=== PATIENT | female | born 1950 | race Two or more races ===

== ENCOUNTER 2024-09-30 13:40 | Outpatient (RCR) | payer MEDICARE, BC, SELFPAY | END 2024-10-10 23:59 | disposition home or self-care (01) | LOC: SCTC 13:40 | PROVIDERS: PCP Internal Medicine; Referring Provider Internal Medicine; Visit Provider Nurse Practitioner Family | DX: D75.9 Disease of blood and blood-forming organs, unspecified (principal); N18.9 Chronic kidney disease, unspecified; D50.9 Iron deficiency anemia, unspecified; Z94.4 Liver transplant status | CPT/HCPCS: 96372; 99212; Q5101; G0463 ==

== ENCOUNTER → 2024-10-12 | Outpatient (CLI) | payer MEDICARE, BC, SELFPAY ==
[2024-10-12 11:26] LABS: Basophils % (Auto) 0 % (0-2.5); Eosinophils # (Auto) 0.1 Thou/mm3 (0.0-0.5); Eosinophils % (Auto) 2 % (0-10); Hematocrit 32.6 % (36.0-46.0); Hemoglobin 10.2 g/dL (12.0-16.0); Immature Granulocytes % (Auto) 0 % (0-0); Immature Granulocytes Auto 0.01 Thou/mm3 (0.00-0.00); Lymphocytes # (Auto) 0.8 Thou/mm3 (1.0-4.8); Lymphocytes % (Auto) 28 % (10-50); Mean Corpuscular HGB Conc 31.3 g/dl (31.0-37.0); Mean Corpuscular Hemoglobin 28.6 pg (25.0-35.0); Mean Corpuscular Volume 91 fL (80-100); Monocytes # (Auto) 0.2 Thou/mm3 (0.0-0.8); Monocytes % (Auto) 5 % (0-12); Neutrophils # (Auto) 1.8 Thou/mm3 (1.8-7.7); Neutrophils % (Auto) 64 % (37-80); Nucleated Red Blood Cell % 0 /100 WBC (0); Platelet Count 85 Thou/mm3 (140-440); RDW Standard Deviation 47.8 fL (36.4-46.3); Red Blood Count 3.57 Miln/mm3 (4.00-5.20)
[2024-10-12 11:40] LABS: Alanine Aminotransferase 10 U/L (10-49); Albumin, Serum 4.2 gm/dL (3.4-4.8); Albumin/Globulin Ratio 1.7 (1.2-2.2); Alkaline Phosphatase 91 U/L (46-116); Anion Gap 6 (7-16); Aspartate Amino Transferase 17 U/L (0-34); BUN/Creatinine Ratio 19 Ratio (12-20); Bilirubin,Total 0.4 mg/dL (0.3-1.2); Blood Urea Nitrogen 41 mg/dL (9-23); Calcium 9.5 mg/dL (8.3-10.6); Calcium (Corrected) 9.5 mg/dL (8.5-10.1); Carbon Dioxide 26.5 mMol/L (20.0-31.0); Chloride 111 mMol/L (98-107); Creatinine (Component) 2.2 mg/dL (0.6-1.3); Globulin 2.5 gm/dL (2.3-3.5); Glucose 110 mg/dL (74-106); Osmolality,Calculated 296 (275-295); Potassium 5.1 mMol/L (3.4-5.1); Sodium 143 mMol/L (136-145); Total Protein 6.7 gm/dL (5.7-8.2); eGFR 23 See Note
[2024-10-12 11:50] LABS: White Blood Count 2.8 Thou/mm3 (3.6-11.0)
== END | disposition home or self-care (01) ==
PROVIDERS: PCP Internal Medicine; Referring Provider Nurse Practitioner Family; Visit Provider Nurse Practitioner Family
DX: D61.818 Other pancytopenia (principal)
CPT/HCPCS: 36415; 80053; 85025

== ENCOUNTER → 2024-10-22 | Outpatient (CLI) | payer MEDICARE, BC, SELFPAY ==
--- NOTE | 2024-10-22 08:06 | XR_ITS ---
Examination: Retroperitoneal ultrasound, complete Technique: Multiple high resolution grayscale images of the retroperitoneum obtained, including kidneys and bladder. Exam date and time:October 22, 2024 0810 hours INDICATIONS: Acute renal insufficiency on laboratory examination performed one week ago FINDINGS: Right kidney 8.5 x 4.4 x 5.0 cm cortex 1.1 cm Left kidney 9.2 x 3.8 x 4.2 cm in the cortex 1.4 cm Moderate bilateral renal parenchymal scar formation No hydronephrosis Contracted urinary bladder no bladder mass or bladder calculi IMPRESSION:: Small kidneys with bilateral renal cortical thinning Moderate bilateral renal parenchymal scar formation
[2024-10-22 10:20] LABS: Basophils # (Auto) 0.1 Thou/mm3 (0.0-0.2); Basophils % (Auto) 1 % (0-2.5); Eosinophils # (Auto) 0.1 Thou/mm3 (0.0-0.5); Eosinophils % (Auto) 0 % (0-10); Hemoglobin 10.5 g/dL (12.0-16.0); Immature Granulocytes % (Auto) 0 % (0-0); Immature Granulocytes Auto 0.05 Thou/mm3 (0.00-0.00); Lymphocytes # (Auto) 0.8 Thou/mm3 (1.0-4.8); Lymphocytes % (Auto) 6 % (10-50); Mean Corpuscular HGB Conc 31.8 g/dl (31.0-37.0); Mean Corpuscular Hemoglobin 28.8 pg (25.0-35.0); Mean Corpuscular Volume 90 fL (80-100); Monocytes # (Auto) 0.5 Thou/mm3 (0.0-0.8); Monocytes % (Auto) 4 % (0-12); Neutrophils # (Auto) 11.2 Thou/mm3 (1.8-7.7); Neutrophils % (Auto) 89 % (37-80); Nucleated Red Blood Cell % 0 /100 WBC (0); Platelet Count 98 Thou/mm3 (140-440); RDW Standard Deviation 47.6 fL (36.4-46.3); Red Blood Count 3.65 Miln/mm3 (4.00-5.20); White Blood Count 12.6 Thou/mm3 (3.6-11.0)
[2024-10-22 10:48] LABS: Albumin, Serum 4.6 gm/dL (3.4-4.8); Anion Gap 4 (7-16); BUN/Creatinine Ratio 17 Ratio (12-20); Blood Urea Nitrogen 45 mg/dL (9-23); Calcium 9.6 mg/dL (8.3-10.6); Calcium (Corrected) 9.6 mg/dL (8.5-10.1); Carbon Dioxide 27.2 mMol/L (20.0-31.0); Chloride 111 mMol/L (98-107); Creatinine (Component) 2.7 mg/dL (0.6-1.3); Glucose 89 mg/dL (74-106); Osmolality,Calculated 293 (275-295); Potassium 5.2 mMol/L (3.4-5.1); Sodium 142 mMol/L (136-145); eGFR 18 See Note
== END | disposition home or self-care (01) ==
LOC: CDIM 07:28 → COPL 08:40
PROVIDERS: PCP Internal Medicine; Referring Provider Internal Medicine; Visit Provider Radiology Diagnostic Radiology
DX: N27.1 Small kidney, bilateral (principal); N28.89 Other specified disorders of kidney and ureter; N17.9 Acute kidney failure, unspecified
CPT/HCPCS: 36415; 76770; 80069; 85025

== ENCOUNTER 2024-11-05 13:03 | Outpatient (RCR) | payer MEDICARE, BC, SELFPAY | END 2024-11-10 23:59 | disposition home or self-care (01) | LOC: SCTC 13:03 | PROVIDERS: PCP Internal Medicine; Referring Provider Internal Medicine; Visit Provider Internal Medicine Hematology & Oncology | DX: D75.9 Disease of blood and blood-forming organs, unspecified (principal); D50.9 Iron deficiency anemia, unspecified; N18.9 Chronic kidney disease, unspecified; Z94.4 Liver transplant status | CPT/HCPCS: 96372; Q5101 ==

== ENCOUNTER → 2024-11-16 | Outpatient (CLI) | payer MEDICARE, BC, SELFPAY ==
[2024-11-16 10:29] LABS: Basophils % (Auto) 0 % (0-2.5); Eosinophils # (Auto) 0.1 Thou/mm3 (0.0-0.5); Eosinophils % (Auto) 2 % (0-10); Hematocrit 36.1 % (36.0-46.0); Hemoglobin 11.4 g/dL (12.0-16.0); Immature Granulocytes % (Auto) 0 % (0-0); Immature Granulocytes Auto 0.01 Thou/mm3 (0.00-0.00); Lymphocytes # (Auto) 0.8 Thou/mm3 (1.0-4.8); Lymphocytes % (Auto) 23 % (10-50); Mean Corpuscular HGB Conc 31.6 g/dl (31.0-37.0); Mean Corpuscular Hemoglobin 28.4 pg (25.0-35.0); Mean Corpuscular Volume 90 fL (80-100); Monocytes # (Auto) 0.2 Thou/mm3 (0.0-0.8); Monocytes % (Auto) 5 % (0-12); Neutrophils # (Auto) 2.2 Thou/mm3 (1.8-7.7); Neutrophils % (Auto) 70 % (37-80); Nucleated Red Blood Cell % 0 /100 WBC (0); Platelet Count 89 Thou/mm3 (140-440); RDW Standard Deviation 47.3 fL (36.4-46.3); Red Blood Count 4.01 Miln/mm3 (4.00-5.20); White Blood Count 3.2 Thou/mm3 (3.6-11.0)
[2024-11-16 10:42] LABS: Alanine Aminotransferase 12 U/L (10-49); Albumin, Serum 4.5 gm/dL (3.4-4.8); Albumin/Globulin Ratio 1.7 (1.2-2.2); Alkaline Phosphatase 96 U/L (46-116); Anion Gap 7 (7-16); Aspartate Amino Transferase 17 U/L (0-34); BUN/Creatinine Ratio 18 Ratio (12-20); Bilirubin,Total 0.4 mg/dL (0.3-1.2); Blood Urea Nitrogen 40 mg/dL (9-23); Calcium 9.7 mg/dL (8.3-10.6); Calcium (Corrected) 9.7 mg/dL (8.5-10.1); Carbon Dioxide 25.2 mMol/L (20.0-31.0); Chloride 113 mMol/L (98-107); Creatinine (Component) 2.2 mg/dL (0.6-1.3); Globulin 2.7 gm/dL (2.3-3.5); Glucose 99 mg/dL (74-106); Osmolality,Calculated 298 (275-295); Potassium 5.3 mMol/L (3.4-5.1); Sodium 145 mMol/L (136-145); Total Protein 7.2 gm/dL (5.7-8.2); eGFR 23 See Note
== END | disposition home or self-care (01) ==
PROVIDERS: PCP Internal Medicine; Referring Provider Nurse Practitioner Family; Visit Provider Nurse Practitioner Family
DX: D61.818 Other pancytopenia (principal)
CPT/HCPCS: 36415; 80053; 85025

== ENCOUNTER → 2024-12-01 | Outpatient (CLI) | payer MEDICARE, BC, SELFPAY ==
[2024-12-01 10:19] LABS: Basophils % (Auto) 0 % (0-2.5); Eosinophils # (Auto) 0.1 Thou/mm3 (0.0-0.5); Eosinophils % (Auto) 3 % (0-10); Hematocrit 31.5 % (36.0-46.0); Hemoglobin 10.5 g/dL (12.0-16.0); Immature Granulocytes % (Auto) 0 % (0-0); Immature Granulocytes Auto 0.01 Thou/mm3 (0.00-0.00); Lymphocytes # (Auto) 0.8 Thou/mm3 (1.0-4.8); Lymphocytes % (Auto) 31 % (10-50); Mean Corpuscular HGB Conc 33.3 g/dl (31.0-37.0); Mean Corpuscular Hemoglobin 28.6 pg (25.0-35.0); Mean Corpuscular Volume 86 fL (80-100); Monocytes # (Auto) 0.2 Thou/mm3 (0.0-0.8); Monocytes % (Auto) 7 % (0-12); Neutrophils # (Auto) 1.5 Thou/mm3 (1.8-7.7); Neutrophils % (Auto) 59 % (37-80); Nucleated Red Blood Cell % 0 /100 WBC (0); Platelet Count 91 Thou/mm3 (140-440); RDW Standard Deviation 45.4 fL (36.4-46.3); Red Blood Count 3.67 Miln/mm3 (4.00-5.20)
[2024-12-01 10:24] LABS: White Blood Count 2.6 Thou/mm3 (3.6-11.0)
== END | disposition home or self-care (01) ==
LOC: SCTO 09:02
PROVIDERS: PCP Internal Medicine; Referring Provider Nurse Practitioner Family; Visit Provider Nurse Practitioner Family
DX: D61.818 Other pancytopenia (principal)
CPT/HCPCS: 36415; 85025

== ENCOUNTER 2024-12-09 13:33 | Outpatient (RCR) | payer MEDICARE, BC, SELFPAY | END 2024-12-11 23:59 | disposition home or self-care (01) | LOC: SCTC 13:33 | PROVIDERS: PCP Internal Medicine; Referring Provider Internal Medicine; Visit Provider Nurse Practitioner Family | DX: D75.9 Disease of blood and blood-forming organs, unspecified (principal); D50.9 Iron deficiency anemia, unspecified; N18.9 Chronic kidney disease, unspecified; Z94.4 Liver transplant status | CPT/HCPCS: 96372; 99212; Q5101; G0463 ==

== ENCOUNTER → 2024-12-22 | Outpatient (CLI) | payer MEDICARE, BC, SELFPAY ==
[2024-12-22 08:51] LABS: Collection Type, Urine Clean Catch
[2024-12-22 09:12] LABS: Basophils % (Auto) 1 % (0-2.5); Eosinophils # (Auto) 0.1 Thou/mm3 (0.0-0.5); Eosinophils % (Auto) 3 % (0-10); Hemoglobin 10.3 g/dL (12.0-16.0); Immature Granulocytes % (Auto) 1 % (0-0); Immature Granulocytes Auto 0.02 Thou/mm3 (0.00-0.00); Lymphocytes # (Auto) 0.6 Thou/mm3 (1.0-4.8); Lymphocytes % (Auto) 30 % (10-50); Mean Corpuscular HGB Conc 32.2 g/dl (31.0-37.0); Mean Corpuscular Hemoglobin 28.3 pg (25.0-35.0); Mean Corpuscular Volume 88 fL (80-100); Monocytes # (Auto) 0.2 Thou/mm3 (0.0-0.8); Monocytes % (Auto) 9 % (0-12); Neutrophils # (Auto) 1.1 Thou/mm3 (1.8-7.7); Neutrophils % (Auto) 57 % (37-80); Nucleated Red Blood Cell % 0 /100 WBC (0); Platelet Count 89 Thou/mm3 (140-440); RDW Standard Deviation 45.2 fL (36.4-46.3); Red Blood Count 3.64 Miln/mm3 (4.00-5.20)
[2024-12-22 09:24] LABS: Bilirubin,Urine Negative (Negative); Blood,Urine Negative (Negative); Clarity,Urine Clear (Clear/Hazy); Color,Urine Yellow (Lt Yel-Yel); Glucose, Urine Negative (Negative); Ketones,Urine Negative (Negative); Leukocyte Esterase,Urine Negative (Negative); Nitrite,Urine Negative (Negative); Protein,Urine Negative (Neg - Trace); RBC,Urine < 1 /hpf (0-3); Specific Gravity,Urine 1.015 (1.001-1.035); Squamous Epithelial Cell,Urine < 1 /hpf (0-5); Urobilinogen,Urine Negative mg/dL (0.0-1.0); WBC,Urine 1 /hpf (0-5)
[2024-12-22 09:27] LABS: Glucose Estimated Average 91 mg/dL (80-131); Hemoglobin A1C 4.8 % Hgb (4.8-6.0)
[2024-12-22 09:28] LABS: Creatinine MALB Rnd Ur 90 mg/dL (30-125); Microalbumin Creat Ratio 3 mg/gCrea (<30); Microalbumin, Random Urine 3 mg/L (0-300)
[2024-12-22 09:32] LABS: Alanine Aminotransferase 12 U/L (10-49); Albumin, Serum 4.3 gm/dL (3.4-4.8); Alkaline Phosphatase 96 U/L (46-116); Anion Gap 4 (7-16); Aspartate Amino Transferase 14 U/L (0-34); BUN/Creatinine Ratio 15 Ratio (12-20); Bilirubin,Direct 0.1 mg/dL (0.0-0.3); Bilirubin,Total 0.3 mg/dL (0.3-1.2); Blood Urea Nitrogen 32 mg/dL (9-23); Calcium 9.3 mg/dL (8.3-10.6); Calcium (Corrected) 9.3 mg/dL (8.5-10.1); Carbon Dioxide 26.2 mMol/L (20.0-31.0); Cardiac Risk Estimate 3.4 RATIO (3.7-5.6); Chloride 112 mMol/L (98-107); Cholesterol 98 mg/dL (132-200); Creatinine (Component) 2.1 mg/dL (0.6-1.3); Globulin 2.2 gm/dL (2.3-3.5); Glucose 98 mg/dL (74-106); HDL Cholesterol 29 mg/dL (40-60); LDL Cholesterol,Calculated 10 mg/dL (0-130); Osmolality,Calculated 290 (275-295); Phosphorous 4.1 mg/dL (2.4-5.1); Potassium 4.9 mMol/L (3.4-5.1); Sodium 142 mMol/L (136-145); Thyroid Stimulating Hormone 1.77 uIU/mL (0.55-4.78); Total Protein 6.5 gm/dL (5.7-8.2); Triglycerides 294 mg/dL (30-150); eGFR 24 See Note
== END | disposition home or self-care (01) ==
LOC: COPL 07:56
PROVIDERS: PCP Internal Medicine; Referring Provider Internal Medicine; Visit Provider Internal Medicine
DX: D61.818 Other pancytopenia (principal); I12.9 Hypertensive chronic kidney disease with stage 1 through stage 4 chronic kidney disease, or unspecified chronic kidney disease; E11.22 Type 2 diabetes mellitus with diabetic chronic kidney disease; N18.4 Chronic kidney disease, stage 4 (severe); N17.9 Acute kidney failure, unspecified; E78.5 Hyperlipidemia, unspecified
CPT/HCPCS: 36415; 80053; 80061; 81001; 82043; 82248; 82570; 83036; 84100; 84443; 85025

== ENCOUNTER 2025-01-06 13:42 | Outpatient (RCR) | payer MEDICARE, BC, SELFPAY | END 2025-01-08 23:59 | disposition home or self-care (01) | LOC: SCTC 13:42 | PROVIDERS: PCP Internal Medicine; Referring Provider Internal Medicine; Visit Provider Internal Medicine Hematology & Oncology | DX: D75.9 Disease of blood and blood-forming organs, unspecified (principal); N18.9 Chronic kidney disease, unspecified; D50.9 Iron deficiency anemia, unspecified; Z94.4 Liver transplant status | CPT/HCPCS: 96372; Q5101 ==

== ENCOUNTER → 2025-01-11 | Outpatient (CLI) | payer MEDICARE, BC, SELFPAY ==
[2025-01-11 09:28] LABS: Basophils % (Auto) 0 % (0-2.5); Eosinophils # (Auto) 0.1 Thou/mm3 (0.0-0.5); Eosinophils % (Auto) 2 % (0-10); Hematocrit 33.7 % (36.0-46.0); Hemoglobin 10.7 g/dL (12.0-16.0); Immature Granulocytes % (Auto) 1 % (0-0); Immature Granulocytes Auto 0.03 Thou/mm3 (0.00-0.00); Lymphocytes # (Auto) 0.7 Thou/mm3 (1.0-4.8); Lymphocytes % (Auto) 20 % (10-50); Mean Corpuscular HGB Conc 31.8 g/dl (31.0-37.0); Mean Corpuscular Volume 88 fL (80-100); Monocytes # (Auto) 0.2 Thou/mm3 (0.0-0.8); Monocytes % (Auto) 5 % (0-12); Neutrophils # (Auto) 2.5 Thou/mm3 (1.8-7.7); Neutrophils % (Auto) 72 % (37-80); Nucleated Red Blood Cell % 0 /100 WBC (0); Platelet Count 106 Thou/mm3 (140-440); RDW Standard Deviation 45.3 fL (36.4-46.3); Red Blood Count 3.82 Miln/mm3 (4.00-5.20); White Blood Count 3.5 Thou/mm3 (3.6-11.0)
[2025-01-11 09:54] LABS: Alanine Aminotransferase 9 U/L (10-49); Albumin, Serum 4.5 gm/dL (3.4-4.8); Albumin/Globulin Ratio 1.8 (1.2-2.2); Alkaline Phosphatase 100 U/L (46-116); Anion Gap 10 (7-16); Aspartate Amino Transferase 15 U/L (0-34); BUN/Creatinine Ratio 22 Ratio (12-20); Bilirubin,Total 0.3 mg/dL (0.3-1.2); Blood Urea Nitrogen 41 mg/dL (9-23); Calcium 9.6 mg/dL (8.3-10.6); Calcium (Corrected) 9.6 mg/dL (8.5-10.1); Carbon Dioxide 23.2 mMol/L (20.0-31.0); Chloride 113 mMol/L (98-107); Creatinine (Component) 1.9 mg/dL (0.6-1.3); Globulin 2.5 gm/dL (2.3-3.5); Glucose 113 mg/dL (74-106); Osmolality,Calculated 301 (275-295); Potassium 4.8 mMol/L (3.4-5.1); Sodium 146 mMol/L (136-145); eGFR 27 See Note
[2025-01-11 11:43] LABS: Ferritin 142 ng/mL (7.3-270.7); Iron 58 mcg/dL (50-170); Percent Iron Saturation 22 % (20-55); Total Iron Binding Capacity 259 mcg/dL (250-425); Unsaturated Iron Binding 201 (225-295)
== END | disposition home or self-care (01) ==
LOC: SCTO 07:58
PROVIDERS: PCP Internal Medicine; Referring Provider Nurse Practitioner Family; Visit Provider Nurse Practitioner Family
DX: D61.818 Other pancytopenia (principal)
CPT/HCPCS: 36415; 80053; 82728; 83540; 83550; 85025

== ENCOUNTER → 2025-01-26 | Outpatient (CLI) | payer MEDICARE, BC, SELFPAY ==
[2025-01-26 08:41] LABS: Basophils % (Auto) 1 % (0-2.5); Eosinophils # (Auto) 0.1 Thou/mm3 (0.0-0.5); Eosinophils % (Auto) 5 % (0-10); Hematocrit 30.1 % (36.0-46.0); Hemoglobin 9.6 g/dL (12.0-16.0); Immature Granulocytes % (Auto) 1 % (0-0); Immature Granulocytes Auto 0.01 Thou/mm3 (0.00-0.00); Lymphocytes # (Auto) 0.7 Thou/mm3 (1.0-4.8); Lymphocytes % (Auto) 31 % (10-50); Mean Corpuscular HGB Conc 31.9 g/dl (31.0-37.0); Mean Corpuscular Hemoglobin 27.9 pg (25.0-35.0); Mean Corpuscular Volume 88 fL (80-100); Monocytes # (Auto) 0.2 Thou/mm3 (0.0-0.8); Monocytes % (Auto) 10 % (0-12); Neutrophils # (Auto) 1.1 Thou/mm3 (1.8-7.7); Neutrophils % (Auto) 53 % (37-80); Nucleated Red Blood Cell % 0 /100 WBC (0); RDW Standard Deviation 46.9 fL (36.4-46.3); Red Blood Count 3.44 Miln/mm3 (4.00-5.20)
[2025-01-26 09:00] LABS: Platelet Count 79 Thou/mm3 (140-440); White Blood Count 2.1 Thou/mm3 (3.6-11.0)
[2025-01-26 10:10] LABS: Slide Review Platelets confirmed
== END | disposition home or self-care (01) ==
LOC: SCTO 07:52
PROVIDERS: PCP Internal Medicine; Referring Provider Nurse Practitioner Family; Visit Provider Nurse Practitioner Family
DX: D61.818 Other pancytopenia (principal)
CPT/HCPCS: 36415; 85025

== ENCOUNTER 2025-02-03 13:35 | Outpatient (RCR) | payer MEDICARE, BC, SELFPAY | END 2025-02-08 23:59 | disposition home or self-care (01) | LOC: SCTC 13:35 | PROVIDERS: PCP Internal Medicine; Referring Provider Internal Medicine; Visit Provider Internal Medicine Hematology & Oncology | DX: D61.818 Other pancytopenia (principal); Z94.4 Liver transplant status; N18.9 Chronic kidney disease, unspecified; J02.9 Acute pharyngitis, unspecified; R05.9 Cough, unspecified; Z86.2 Personal history of diseases of the blood and blood-forming organs and certain disorders involving the immune mechanism | CPT/HCPCS: 96372; 99212; Q5101; G0463 ==

== ENCOUNTER → 2025-02-09 | Outpatient (CLI) | payer MEDICARE, BC, SELFPAY ==
[2025-02-09 08:32] LABS: Basophils % (Auto) 0 % (0-2.5); Eosinophils # (Auto) 0.1 Thou/mm3 (0.0-0.5); Eosinophils % (Auto) 6 % (0-10); Hemoglobin 9.7 g/dL (12.0-16.0); Immature Granulocytes % (Auto) 1 % (0-0); Immature Granulocytes Auto 0.03 Thou/mm3 (0.00-0.00); Lymphocytes # (Auto) 0.7 Thou/mm3 (1.0-4.8); Lymphocytes % (Auto) 29 % (10-50); Mean Corpuscular HGB Conc 32.3 g/dl (31.0-37.0); Mean Corpuscular Hemoglobin 28.2 pg (25.0-35.0); Mean Corpuscular Volume 87 fL (80-100); Monocytes # (Auto) 0.2 Thou/mm3 (0.0-0.8); Monocytes % (Auto) 7 % (0-12); Neutrophils # (Auto) 1.3 Thou/mm3 (1.8-7.7); Neutrophils % (Auto) 57 % (37-80); Nucleated Red Blood Cell % 0 /100 WBC (0); Platelet Count 83 Thou/mm3 (140-440); RDW Standard Deviation 46.3 fL (36.4-46.3); Red Blood Count 3.44 Miln/mm3 (4.00-5.20)
[2025-02-09 08:38] LABS: White Blood Count 2.3 Thou/mm3 (3.6-11.0)
== END | disposition home or self-care (01) ==
LOC: SCTO 07:49
PROVIDERS: PCP Internal Medicine; Referring Provider Nurse Practitioner Family; Visit Provider Nurse Practitioner Family
DX: D61.818 Other pancytopenia (principal)
CPT/HCPCS: 36415; 85025

== ENCOUNTER → 2025-02-15 | Outpatient (CLI) | payer MEDICARE, BC, SELFPAY ==
[2025-02-12 09:51] VITALS: BMI 22.3
[2025-02-15 10:57] LABS: Basophils % (Auto) 1 % (0-2.5); Eosinophils # (Auto) 0.1 Thou/mm3 (0.0-0.5); Eosinophils % (Auto) 5 % (0-10); Hematocrit 31.2 % (36.0-46.0); Hemoglobin 10.2 g/dL (12.0-16.0); Immature Granulocytes % (Auto) 1 % (0-0); Immature Granulocytes Auto 0.02 Thou/mm3 (0.00-0.00); Lymphocytes # (Auto) 0.7 Thou/mm3 (1.0-4.8); Lymphocytes % (Auto) 24 % (10-50); Mean Corpuscular HGB Conc 32.7 g/dl (31.0-37.0); Mean Corpuscular Hemoglobin 28.4 pg (25.0-35.0); Mean Corpuscular Volume 87 fL (80-100); Monocytes # (Auto) 0.2 Thou/mm3 (0.0-0.8); Monocytes % (Auto) 6 % (0-12); Neutrophils # (Auto) 1.9 Thou/mm3 (1.8-7.7); Neutrophils % (Auto) 65 % (37-80); Nucleated Red Blood Cell % 0 /100 WBC (0); RDW Standard Deviation 45.2 fL (36.4-46.3); Red Blood Count 3.59 Miln/mm3 (4.00-5.20)
[2025-02-15 11:02] LABS: Prothrombin Time 11.1 Seconds (9.0-12.2)
[2025-02-15 11:15] LABS: Platelet Count 66 Thou/mm3 (140-440); White Blood Count 2.9 Thou/mm3 (3.6-11.0)
--- NOTE | 2025-02-15 11:17 | PC.NURSE ---
Radiologist notified about low platelet count (66) and low WBC count (2.9). Radiologist okay with proceeding with tomorrow's procedure.
[2025-02-15 13:08] LABS: Slide Review Platelets confirmed
--- NOTE | 2025-03-02 18:37 | PC.NURSE ---
patient unable to talk at this time, message left with family to have patient register and get labs tomorrow 03/03/25 and come in for scheduled procedure 03/04/25 at 0730
== END | disposition home or self-care (01) ==
LOC: SLAB 03-03 08:30
PROVIDERS: Radiology Diagnostic Radiology; PCP Internal Medicine; Referring Provider Nurse Practitioner Family; Visit Provider Nurse Practitioner Family
DX: D61.818 Other pancytopenia (principal)
CPT/HCPCS: 36415; 85025; 85610; 85730

== ENCOUNTER → 2025-02-16 | Outpatient (CLI) | payer MEDICARE, BC, SELFPAY ==
[2025-02-16 10:45] LABS: Basophils % (Auto) 1 % (0-2.5); Eosinophils # (Auto) 0.2 Thou/mm3 (0.0-0.5); Eosinophils % (Auto) 9 % (0-10); Hemoglobin 9.9 g/dL (12.0-16.0); Immature Granulocytes % (Auto) 1 % (0-0); Immature Granulocytes Auto 0.01 Thou/mm3 (0.00-0.00); Lymphocytes # (Auto) 0.6 Thou/mm3 (1.0-4.8); Lymphocytes % (Auto) 27 % (10-50); Mean Corpuscular HGB Conc 31.9 g/dl (31.0-37.0); Mean Corpuscular Hemoglobin 28.1 pg (25.0-35.0); Mean Corpuscular Volume 88 fL (80-100); Monocytes # (Auto) 0.2 Thou/mm3 (0.0-0.8); Monocytes % (Auto) 9 % (0-12); Neutrophils # (Auto) 1.2 Thou/mm3 (1.8-7.7); Neutrophils % (Auto) 55 % (37-80); Nucleated Red Blood Cell % 0 /100 WBC (0); RDW Standard Deviation 45.7 fL (36.4-46.3); Red Blood Count 3.52 Miln/mm3 (4.00-5.20)
[2025-02-16 10:53] LABS: White Blood Count 2.2 Thou/mm3 (3.6-11.0)
[2025-02-16 10:58] LABS: Platelet Count 73 Thou/mm3 (140-440)
[2025-02-16 12:18] LABS: Slide Review Platelets confirmed
[2025-02-16 12:19] LABS: Alanine Aminotransferase 8 U/L (10-49); Albumin, Serum 3.8 gm/dL (3.4-4.8); Albumin/Globulin Ratio 1.7 (1.2-2.2); Alkaline Phosphatase 77 U/L (46-116); Anion Gap 9 (7-16); Aspartate Amino Transferase 17 U/L (0-34); BUN/Creatinine Ratio 16 Ratio (12-20); Bilirubin,Total 0.4 mg/dL (0.3-1.2); Blood Urea Nitrogen 32 mg/dL (9-23); Calcium 8.8 mg/dL (8.3-10.6); Carbon Dioxide 26.2 mMol/L (20.0-31.0); Chloride 109 mMol/L (98-107); Globulin 2.3 gm/dL (2.3-3.5); Glucose 95 mg/dL (74-106); Osmolality,Calculated 293 (275-295); Potassium 3.6 mMol/L (3.4-5.1); Sodium 144 mMol/L (136-145); Total Protein 6.1 gm/dL (5.7-8.2); eGFR 26 See Note
== END | disposition home or self-care (01) ==
LOC: SCTO 09:10
PROVIDERS: PCP Internal Medicine; Referring Provider Nurse Practitioner Family; Visit Provider Nurse Practitioner Family
DX: D61.818 Other pancytopenia (principal)
CPT/HCPCS: 36415; 80053; 85025

== ENCOUNTER 2025-03-04 07:31 | Outpatient (CLI) | payer MEDICARE, BC, SELFPAY ==
[2025-03-04] VITALS (10 sets, daily range): BP systolic 105–125; BP diastolic 67–72; PULSE 77–84; RESP 12–22; TEMP 36.8–37.2; O2SAT 96–100; BMI 23.0
[2025-03-04 07:49] LABS: Flow Cytometry* See Sep Rpt
[2025-03-04 08:03] LABS: Basophils # (Auto) 0.1 Thou/mm3 (0.0-0.2); Basophils % (Auto) 1 % (0-2.5); Eosinophils # (Auto) 0.2 Thou/mm3 (0.0-0.5); Eosinophils % (Auto) 3 % (0-10); Hematocrit 33.4 % (36.0-46.0); Hemoglobin 10.8 g/dL (12.0-16.0); Immature Granulocytes % (Auto) 0 % (0-0); Immature Granulocytes Auto 0.02 Thou/mm3 (0.00-0.00); Lymphocytes # (Auto) 0.8 Thou/mm3 (1.0-4.8); Lymphocytes % (Auto) 10 % (10-50); Mean Corpuscular HGB Conc 32.3 g/dl (31.0-37.0); Mean Corpuscular Hemoglobin 28.2 pg (25.0-35.0); Mean Corpuscular Volume 87 fL (80-100); Monocytes # (Auto) 0.5 Thou/mm3 (0.0-0.8); Monocytes % (Auto) 6 % (0-12); Neutrophils # (Auto) 6.2 Thou/mm3 (1.8-7.7); Neutrophils % (Auto) 80 % (37-80); Nucleated Red Blood Cell % 0 /100 WBC (0); Platelet Count 90 Thou/mm3 (140-440); Red Blood Count 3.83 Miln/mm3 (4.00-5.20); White Blood Count 7.8 Thou/mm3 (3.6-11.0)
--- NOTE | 2025-03-04 08:30 | XR_ITS ---
Examination: CT-guided percutaneous bone marrow aspiration right posterior superior iliac crest CT-guided bone biopsy deep right posterior superior iliac crest CT pelvis without intravenous contrast Date and time of procedure: March 04, 2025 0849 hours INDICATIONS: Diagnosis pancytopenia Informed consent provided. A timeout was completed verifying correct patient, procedure, site and positioning. Technique: Axial 3 mm sections were obtained for localization of the right posterior superior iliac crest Appropriate area is marked. The patient's site was prepped and draped in sterile fashion Maximal sterile barrier technique utilized, including hand hygiene Local anesthesia was obtained with 1% lidocaine. Low dose protocols were performed. One or more of the following dose reduction techniques were used; automated exposure control, adjustment of the mA and/or KV according to patient size, use of iterative reconstruction technique. Utilizing CT fluoroscopic guidance 14-gauge bone biopsy needle placed in the right posterior superior iliac crest 10 cc marrow aspirate and 5 cm bone core obtained Patient appears in stable condition during this procedure. At completion of the procedure, the patient is in satisfactory condition. Estimated blood loss 2 cc Complete pathology report to follow. Impression: Successful CT-guided percutaneous bone marrow aspiration right posterior superior iliac crest Successful CT-guided bone biopsy deep right posterior superior iliac crest
[2025-03-04 08:31] LABS: Partial Thromboplastin Time 24.9 Seconds (22.0-36.0); Prothrombin Time 11.4 Seconds (9.0-12.2)
[2025-03-04] MEDS: SODIUM CHLORIDE 0.9% 500 ML 500 ML 250 ML IV (09:00)
[2025-03-04] MEDS: fentaNYL CIT INJ 50 mCg/ML AMP 2ML IV (09:05)
== END 2025-03-04 10:50 | disposition home or self-care (01) ==
PROVIDERS: Radiology Diagnostic Radiology; PCP Internal Medicine; Referring Provider Nurse Practitioner Family; Visit Provider Nurse Practitioner Family
DX: D69.6 Thrombocytopenia, unspecified (principal); D75.89 Other specified diseases of blood and blood-forming organs; Z01.812 Encounter for preprocedural laboratory examination
CPT/HCPCS: 38221; 36415; 77012; 85025; 85610; 85730; J3010; J7040

== ENCOUNTER → 2025-03-09 | Outpatient (CLI) | payer MEDICARE, BC, SELFPAY ==
[2025-03-09 09:47] LABS: Basophils % (Auto) 0 % (0-2.5); Eosinophils # (Auto) 0.1 Thou/mm3 (0.0-0.5); Eosinophils % (Auto) 5 % (0-10); Hematocrit 33.6 % (36.0-46.0); Hemoglobin 10.8 g/dL (12.0-16.0); Immature Granulocytes % (Auto) 1 % (0-0); Immature Granulocytes Auto 0.02 Thou/mm3 (0.00-0.00); Lymphocytes # (Auto) 0.9 Thou/mm3 (1.0-4.8); Lymphocytes % (Auto) 34 % (10-50); Mean Corpuscular HGB Conc 32.1 g/dl (31.0-37.0); Mean Corpuscular Hemoglobin 28.1 pg (25.0-35.0); Mean Corpuscular Volume 87 fL (80-100); Monocytes # (Auto) 0.2 Thou/mm3 (0.0-0.8); Monocytes % (Auto) 9 % (0-12); Neutrophils # (Auto) 1.3 Thou/mm3 (1.8-7.7); Neutrophils % (Auto) 51 % (37-80); Nucleated Red Blood Cell % 0 /100 WBC (0); Platelet Count 90 Thou/mm3 (140-440); RDW Standard Deviation 46.1 fL (36.4-46.3); Red Blood Count 3.85 Miln/mm3 (4.00-5.20)
[2025-03-09 09:49] LABS: White Blood Count 2.6 Thou/mm3 (3.6-11.0)
[2025-03-09 10:16] LABS: Alanine Aminotransferase 9 U/L (10-49); Albumin, Serum 4.3 gm/dL (3.4-4.8); Albumin/Globulin Ratio 1.7 (1.2-2.2); Alkaline Phosphatase 80 U/L (46-116); Anion Gap 8 (7-16); Aspartate Amino Transferase 16 U/L (0-34); BUN/Creatinine Ratio 12 Ratio (12-20); Bilirubin,Total 0.5 mg/dL (0.3-1.2); Blood Urea Nitrogen 24 mg/dL (9-23); Calcium 9.3 mg/dL (8.3-10.6); Calcium (Corrected) 9.3 mg/dL (8.5-10.1); Carbon Dioxide 25.8 mMol/L (20.0-31.0); Chloride 109 mMol/L (98-107); Globulin 2.6 gm/dL (2.3-3.5); Glucose 109 mg/dL (74-106); Osmolality,Calculated 289 (275-295); Potassium 3.9 mMol/L (3.4-5.1); Sodium 143 mMol/L (136-145); Total Protein 6.9 gm/dL (5.7-8.2); eGFR 26 See Note
== END | disposition home or self-care (01) ==
LOC: SCTO 08:20
PROVIDERS: PCP Internal Medicine; Referring Provider Nurse Practitioner Family; Visit Provider Nurse Practitioner Family
DX: D61.818 Other pancytopenia (principal)
CPT/HCPCS: 36415; 80053; 85025

== ENCOUNTER 2025-03-10 13:35 | Outpatient (RCR) | payer MEDICARE, BC, SELFPAY | END 2025-03-10 23:59 | disposition home or self-care (01) | LOC: SCTC 13:35 | PROVIDERS: PCP Internal Medicine; Referring Provider Internal Medicine Hematology & Oncology; Visit Provider Nurse Practitioner Family | DX: D61.818 Other pancytopenia (principal); Z94.4 Liver transplant status; Z95.4 Presence of other heart-valve replacement; N18.9 Chronic kidney disease, unspecified | CPT/HCPCS: 96372; 99212; Q5101; G0463 ==

== ENCOUNTER → 2025-03-25 | Outpatient (CLI) | payer MEDICARE, BC, SELFPAY ==
[2025-03-25 09:51] LABS: Basophils # (Auto) 0.1 Thou/mm3 (0.0-0.2); Basophils % (Auto) 1 % (0-2.5); Eosinophils # (Auto) 0.1 Thou/mm3 (0.0-0.5); Eosinophils % (Auto) 1 % (0-10); Hematocrit 32.8 % (36.0-46.0); Hemoglobin 10.5 g/dL (12.0-16.0); Immature Granulocytes % (Auto) 1 % (0-0); Immature Granulocytes Auto 0.04 Thou/mm3 (0.00-0.00); Lymphocytes # (Auto) 0.9 Thou/mm3 (1.0-4.8); Lymphocytes % (Auto) 10 % (10-50); Mean Corpuscular Hemoglobin 28.4 pg (25.0-35.0); Mean Corpuscular Volume 89 fL (80-100); Monocytes # (Auto) 0.6 Thou/mm3 (0.0-0.8); Monocytes % (Auto) 7 % (0-12); Neutrophils % (Auto) 81 % (37-80); Nucleated Red Blood Cell % 0 /100 WBC (0); Platelet Count 84 Thou/mm3 (140-440); RDW Standard Deviation 49.1 fL (36.4-46.3); White Blood Count 8.6 Thou/mm3 (3.6-11.0)
[2025-03-25 10:05] LABS: Alanine Aminotransferase 10 U/L (10-49); Albumin, Serum 4.4 gm/dL (3.4-4.8); Albumin/Globulin Ratio 1.8 (1.2-2.2); Alkaline Phosphatase 93 U/L (46-116); Anion Gap 10 (7-16); Aspartate Amino Transferase 17 U/L (0-34); BUN/Creatinine Ratio 23 Ratio (12-20); Bilirubin,Total 0.7 mg/dL (0.3-1.2); Blood Urea Nitrogen 59 mg/dL (9-23); Calcium 9.2 mg/dL (8.3-10.6); Calcium (Corrected) 9.2 mg/dL (8.5-10.1); Carbon Dioxide 21.1 mMol/L (20.0-31.0); Chloride 108 mMol/L (98-107); Creatinine (Component) 2.6 mg/dL (0.6-1.3); Globulin 2.5 gm/dL (2.3-3.5); Glucose 95 mg/dL (74-106); Osmolality,Calculated 294 (275-295); Phosphorous 4.6 mg/dL (2.4-5.1); Sodium 139 mMol/L (136-145); Total Protein 6.9 gm/dL (5.7-8.2); eGFR 19 See Note
== END | disposition home or self-care (01) ==
LOC: COPL 08:03
PROVIDERS: PCP Internal Medicine; Referring Provider Internal Medicine; Visit Provider Nurse Practitioner Family
DX: N18.4 Chronic kidney disease, stage 4 (severe) (principal); D61.818 Other pancytopenia
CPT/HCPCS: 36415; 80053; 84100; 85025

== ENCOUNTER 2025-04-08 14:31 | Outpatient (RCR) | payer MEDICARE, BC, SELFPAY ==
--- NOTE | 2025-04-11 23:52 | CTCFLWUP_ITS ---
Patient: RACHELLE JOHNSON : 1950 Page 7 of 11 FOLLOW UP NOTE DATE OF SERVICE: 04/08/2025 NAME: RACHELLE JOHNSON ACCOUNT: [id number] : 1950 AGE: 74 INTERVAL HISTORY: Subjective: Chief Complaint Follow-up for low hemoglobin and white cell count, bone marrow biopsy results History of Present Illness Alex Wiggins, a female patient with a history of liver cirrhosis and liver transplant, presents for follow-up of persistently low blood cell counts. A recent bone marrow biopsy revealed concerns about her bone marrow function, with fewer cells being produced. 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 The patient's condition has likely been present for some time, causing persistently low cell counts. She has not required blood transfusions recently, which is an improvement from her pre-liver transplant status when she frequently needed transfusions. The patient reports experiencing fatigue and significant hair loss. She denies any swelling when not taking her water pill. Rachelle's medical history is significant for uncontrolled diabetes, for which she is currently taking Ozempic. She is also on tacrolimus 1 mg for her liver transplant and memantine for memory loss. The patient is experiencing low blood pressure, possibly as a side effect of her current medications. The patient has not started any new treatments for her MDS, as the patient wants to consult with her primary care doctor and liver specialist before initiating therapy. She has been receiving injections to increase her white blood cell count, which will continue for now. Medications and Supplements - Tacrolimus 1 mg - Memantine - For memory loss - Ozempic - For blood sugar control - Side effect: low blood pressure - Propranolol - Furosemide - Erythropoietin injection - For increasing white cell count - Fluconazole Review of Systems General: Positive for fatigue, hair loss. Cardiovascular: Positive for low blood pressure. Objective: Vital Signs - Blood Pressure: 94/60 mmHg Laboratory, Imaging, and Diagnostic Test Results - Bone marrow biopsy: - Blast: 1% - Genetic test: 5q deletion - Previous results: - Hemoglobin: Low - White blood cell count: Low - Erythropoietin level: Ordered (results pending) Assessment and Plan: Alex Wiggins, an elderly female with a history of liver cirrhosis and liver transplant, presents with low hemoglobin and white cell count, diagnosed with myelodysplastic syndrome (MDS) with 5q deletion. Myelodysplastic Syndrome (MDS) with 5q deletion Assessment: Patient's bone marrow biopsy revealed decreased cell production without myelodysplasia. 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 The blast percentage is only 1%, ruling out leukemia (which requires >5% blasts in women). This condition has likely been present for some time, causing persistently low cell counts. The patient's MDS is classified as low-risk due to the specific 5q deletion mutation. Without treatment, cell counts may continue to decline, potentially progressing to leukemia. Plan: - Initiate chemotherapy with Revlimid (lenalidomide) - Treatment is lifelong to prevent transfusion dependency - Do not start medication until follow-up appointment and review of notes - Order erythropoietin level test - Continue current shot for low white cell count - Consider adding baby aspirin for blood clot prevention - Refer to [facility] Hematology/Oncology for second opinion - Follow up in 4 weeks - Monitor blood counts and risk of blood clots Liver Cirrhosis status post liver transplant Assessment: Patient has a history of liver cirrhosis and underwent orthotopic liver transplant in 2019 for non-alcoholic steatohepatitis (STROUD). Currently on tacrolimus 1 mg for immunosuppression. The patient's blood work from 2013 and 2015 shows stability. There is concern that tacrolimus may be contributing to the development of MDS due to its immunosuppressive effects. Plan: - Consult with liver transplant team regarding management of immunosuppression in context of MDS diagnosis - Obtain and review previous EGD reports and liver transplant records - Continue tacrolimus 1 mg as prescribed by transplant team Uncontrolled Diabetes Mellitus Assessment: Patient has uncontrolled diabetes mellitus, currently managed with Ozempic (semaglutide). This medication may be contributing to the patient's low blood pressure (94/60) and fatigue. Plan: - Consult with primary care physician (Dr. Tate Hayes) regarding diabetes management - Recommend consideration of alternative diabetes medications (e.g., Jardiance, metformin) to avoid hypotension - Monitor blood pressure and adjust medications as needed Hypotension Assessment: Patient presents with low blood pressure (94/60), likely due to a combination of medications including Ozempic, propranolol, and furosemide. The propranolol may have been prescribed for portal hypertension management, but its necessity is unclear. Plan: - Consult with primary care physician and transplant team regarding medication adjustments - Consider discontinuation of furosemide if no signs of fluid overload - Reassess need for propranolol with transplant team - Monitor blood pressure regularly Memory Loss Assessment: Patient is currently taking memantine for memory loss. No further details provided about the severity or impact of memory issues. Plan: - Continue memantine as prescribed - Reassess cognitive function at follow-up visits Nutritional Deficiencies Assessment: Patient reports significant hair loss, which may be related to nutritional deficiencies secondary to medication side effects or underlying medical conditions. Plan: - Order comprehensive vitamin panel including B12 and folate levels - Supplement any deficient vitamins as indicated by lab results - Reassess hair loss and fatigue at follow-up visits ONCOLOGY HISTORY:?CloneBlock Oncology Hx? 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 Currently on Neupogen (zarixio) 300 mcg subcu once a week. Chronic renal insufficiency previously on Procrit 10,000 units subcu once a week Status post liver transplant in November 2019 for cirrhosis of the liver caused by fatty infiltration. 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 Weekly Neupogen (filgrastim) 300 mcg PANCYTOPENIA [ICD9] 284.1*; CIRRHOSIS OF LIVER NOS [ICD9] 571.5*; PANCYTOPENIA [ICD9] 284.1*; CIRRHOSIS OF LIVER NOS [ICD9] 571.5*; Other pancytopenia [ICD10] D61.818 DATE OF DIAGNOSIS: STAGE/TNM: TREATMENT HISTORY: Care?Plan Start?Date Cycle Day Intent VENOfer?200mg?IV?wkly 11/02/2020 1 70 Palliative HISTORY OF PRESENT ILLNESS: Ms. Johnson is here at [facility]. Patient is accompanied by her . Currently she is on weekly Neupogen (filgrastim) injections. She gets CBC every other week. Ambulating well without any help. Has good appetite and good energy levels. Patient denies headache dizziness vision changes nausea. Patient following up with transplant center every 3 months, she is also following up with nephrology, Dr. Rodriguez, [facility] every 6 months. HISTORY: Rachelle Johnson is a 74-year-old ENG speaking female with longstanding history of anemia at least for the last 10 years, status post multiple packed cell transfusions at least twice a year for last 10 years is referred to hematology clinic to evaluate the cause for her chronic anemia. Her last blood transfusion was about 2 weeks ago. Labs drawn on 06/27/2020 showed her hemoglobin to be 6.7 with an MCV of 98, WBC 2.5 with an ANC of 1.8, and platelet count of 67,000. Patient was sent to emergency room where she received 2 units of packed cell transfusion. Labs drawn yesterday showed her hemoglobin to be 10.2. 10/07/2019: Colonoscopy? November 2019: Patient had liver transplant at [facility] for cirrhosis of the liver thought to be secondary to fatty infiltration. 03/25/2020: Upper GI endoscopy? May 2020: Patient had aortic valve replacement with pig valve at [facility]. Chronic renal insufficiency with a creatinine of 1.81 and EGFR of 28. Currently patient is taking Procrit 10,000 units subcu once a week at home. 06/27/2020: WBC 2.5, ANC 1.8, hemoglobin 6.7, MCV 98, platelets 67,000. Creatinine 1.7, EGFR 32. Patient had 2 units of packed cell transfusion. 07/11/2020: Hemoglobin 10.2, MCV 94, WBC 2.3, ANC 1.4, platelets 64,000. 07/14/2020: WBC 2.0, ANC 1.3, hemoglobin 10.4, MCV 94, platelets 62,000, creatinine 1.73, EGFR 29, iron saturation 48%, ferritin 45, B12 558, folate 18.3, TSH 1.1, Stefanie test negative. Patient stopped Procrit on the advice of Dr. 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 08/02/2020: WBC 2.1, ANC 1.2, hemoglobin 9.4, MCV 92, platelets 47,000 09/13/2020: WBC 2.0, ANC 1.1, hemoglobin 9.2, platelets 78,000. 10/18/2020: Bone marrow biopsy and aspiration? 10/24/2020: WBC 1.8, ANC 1.1, hemoglobin 10, MCV 83, platelets 59,000, iron saturation 14%, ferritin 17, vitamin B12 is 596, folic acid more than 20. Erythropoietin 38.5 (2.6?18.5) currently patient is on Procrit 10,000 units subcu once a week. 11/14/2020: Tacrolimus level 8.9 (2.0?20.0), WBC 1.4, ANC 0.8, hemoglobin 9.8, MCV 83, platelets 57,000. 06/21/2021: WBC 1.8, ANC 1.0, hemoglobin 10.8, MCV 93, platelets 55,000. 08/22/2021: WBC 2.1, ANC 1.3, hemoglobin 11.3, MCV 93, platelets 54,000. 08/31/2021: Patient is started on weekly Neupogen 300 mcg subcu. 10/24/2021: WBC 2.4, ANC 1.3, hemoglobin 11.2, MCV 91, platelets 87,000. 12/25/2021: WBC 2.8, ANC 1.8, hemoglobin 11.1, MCV 91, platelets 70,000. 10/29/2022: WBC 2.6, ANC 1.5, hemoglobin 10.8, MCV 90, platelets 80,000. 10/24/2023: WBC 9.2, ANC 7.8, hemoglobin 10.1, MCV 93, platelets 84,000 01/07/2024: WBC 2.5, ANC 1.6, hemoglobin 9.2, MCV 89, platelets 75,000 01/23/2024: WBC 7.7, ANC 6.4, hemoglobin 9.6, MCV 90, platelets 85,000 02/11/2024: WBC 1.9, ANC 1.1, hemoglobin 9.6, MCV 88, platelets 74,000 02/24/2024: WBC 2.3, ANC 1.4, hemoglobin 10.4, MCV 89, platelets 86,000 04/08/2024: WBC 1.8, ANC 0.9, hemoglobin 9.9, MCV 88, platelets 76,000 04/28/2024: WBC 2.6, ANC 1.7, hemoglobin 9.8, MCV 89, platelets 80,000 05/26/2024: WBC 3.2, ANC 2.0, hemoglobin 9.8, MCV 89, platelets 127,000 06/17/2024: WBC 1.3, ANC 0.4, hemoglobin 9.8, MCV 98, platelets 78,000 07/07/2024: WBC 2.0, ANC 1.2, hemoglobin 9.6, MCV 91, platelets 91,000 07/21/2024: WBC 2.3, ANC 1.4, hemoglobin 10.1, MCV 89, platelets 87,000 08/21/2024: WBC 6.2, ANC 5.2, hemoglobin 10.2, MCV 90, platelets 83,000 09/08/2024: WBC 2.3, ANC 12.3, hemoglobin 10.3, MCV 90, platelets 94,000 OTHER MEDICAL HISTORY/CONDITIONS: Anemia Chronic kidney disease follows up with Dr. Rodriguez at [facility] Memory FAMILY HISTORY: Liver transplant [facility] November 2019 Heart valve replacement [facility] May 2020 SOCIAL HISTORY: [employer] HISTORY: MEDICATIONS: 1. buPROPion HCl - 100 mg 1 tab Daily 2. Calcium 600 - 600 mg Daily 3. escitalopram oxalate - 20 mg 1 tab Daily 4. fluconazole - 100 mg 1 tab Daily 5. gabapentin - 300 mg 1 Capsule Daily 6. Lasix - 40 mg 1 tab Twice a Day 7. melatonin - 5 mg 2 tab Every day before sleep 8. mycophenolate mofetiL - 250 mg 1 Capsule Twice a Day 9. Nephro-Saloni - 0.8 mg 1 tab Daily 10. ondansetron HCl - 4 mg 1 tab As needed 11. Ozempic - 1 mg/dose (2 mg/1.5 mL) Weekly 12. pantoprazole - 40 mg 1 tab Daily 13. QUEtiapine - 25 mg 0.5 tab Every day before sleep 14. tacrolimus - 1 mg 2 Capsule Twice a Day 15. ursodiol - 300 mg 1 Capsule Three times a day 16. Vitamin B-1 - 100 mg 1 tab Daily?Palabra Meds? Medications Last Reconciled by Rachelle Phoenix MA on 04/08/2025 ALLERGIES: No Known Drug Allergies REVIEW OF SYSTEMS: A complete 14-point review of systems was performed and is negative except as noted in interval history. PHYSICAL EXAMINATION:?CloneBlock PE? VITAL SIGNS: Temperature?98, B/P?110/70, Oxygen?Saturation?100% PAIN: 0 - No pain ECOG Performance Status: 1 - Symptomatic; ambulatory; restricted in strenuous activity GENERAL APPEARANCE: Appears well, in no apparent distress, appropriately interactive. HEENT: Normocephalic, no temporal wasting, normal conjunctiva, no scleral icterus, normal hearing, lips without lesions, neck normal range of motion, no neck lymphadenopathy, erythema to back of throat, no white exudate CARDIOVASCULAR: Normal heart sounds PULMONARY: Normal respiratory effort, no respiratory distress or use of accessory muscles, speaking in full sentences, no tachypnea. EXTREMITIES: No pedal edema or cyanosis. SKIN: Normal skin appearance, no rash, no bruising. NEUROLOGIC: Alert and oriented x4. PSHYCHIATRIC: Appropriate affect, mood normal, behavior normal, intact thought and speech. LABORATORY DATA: I have personally reviewed and interpreted each of the patient?s relevant lab tests, abnormal findings are below: Date 03/25/25 04/08/25 ??WHITE?BLOOD?COUNT?(Thou/mm3) 8.6 7.9 ??RED?BLOOD?COUNT?(Miln/mm3) 3.70?L 3.49?L ??HEMOGLOBIN?(gm/dl) 10.5?L 10.0?L ??HEMATOCRIT?(%) 32.8?L 30.2?L ??PLATELET?COUNT?(Thou/mm3) 84?L 97?L ??NEUTROPHILS?%,?AUTO?(%) 81?H 80 ??LYMPH?%,?AUTO?(%) 10 12 ??NEUTROPHILS,?AUTO?(Thou/mm3) 7.0 6.3 ??GLUCOSE,RANDOM?(mg/dL) 95 108?H ??BLOOD?UREA?NITROGEN?(mg/dL) 59?H 48?H ??CREATININE?(mg/dL) 2.60?H 2.40?H ??SODIUM?(mmol/L) 139 143 ??POTASSIUM?(mmol/L) 5.0 4.4 ??CHLORIDE?(mmol/L) 108?H 110?H ??CrCl?(CandG)?(ml/min) 16.47 18.45 ??AST/SGOT?(Unit/L) 17 15 ??ALT/SGPT?(Unit/L) 10 <?7?L ??ALKALINE?PHOSPHATASE?(Unit/L) 93 93 ??BILIRUBIN,?TOTAL?(mg/dL) 0.7 0.5 ??PROTEIN?TOTAL?(gm/dl) 6.9 6.8 ??ALBUMIN,?SERUM?(gm/dl) 4.4 4.3 ??GLOBULIN?(gm/dl) 2.5 2.5 ??ALBUMIN/GLOBULIN?RATIO 1.8 1.7 ??CALCIUM,?SERUM?(mg/dL) 9.2 8.9 ??CALCIUM?SERUM?(CORRECTED)?(mg/dL) 9.2 8.9 ASSESSMENT/PLAN:?Zohaib Sibley Assessment/Plan? 1. 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 Currently on Neupogen (zarixio) 300 mcg subcu once a week. Tacrolimus 2 mg p.o. twice daily. Tacrolimus which is known to cause pancytopenia in liver transplantation patients. In patients who are taking tacrolimus for liver transplantation the incidence of anemia is 47%, thrombocytopenia 24%. Status post liver transplant in November 2019 for cirrhosis of the liver caused by fatty infiltration. 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 Bone marrow biopsy and aspiration done on October 18, 2020 showed normocellular bone marrow with cash application clerk trilineage hematopoiesis, normal karyotype as well as without any evidence for FISH MDS cytogenetic changes. Currently Ms. Johnson is a weekly Neupogen (filgrastim) 300 mcg subcu once a week Labs done on 02/16/2025 showed hemoglobin 9.9, MCV 88, ANC 1.2, WBC 2.2, platelets 73,000. Patient follows up with transplant center every 3 months. Patient denies fever, bleeding concerns, bruising. CBC every 2 weeks. CBC CMP prior to follow-up Pending Bone marrow biopsy due to concerns of anemia, scheduled 03/04/2025 Continue neupogen 2. Chronic renal insufficiency previously on Procrit 10,000 units subcu once a week Renal insufficiency also most likely contributing to her anemia. Following up with nephrology at [facility], follows up with nephrology every 6 months 3. History of Iron deficiency anemia. S/p Venofer infusion. Labs done on 01/11/2025 show iron saturation 22%, ferritin 142. Reports good energy and appetite levels. Denies any cravings. Subjective: Chief Complaint Follow-up for low hemoglobin and white cell count, bone marrow biopsy results History of Present Illness Alex Wiggins, a female patient with a history of liver cirrhosis and liver transplant, presents for follow-up of persistently low blood cell counts. A recent bone marrow biopsy revealed concerns about her bone marrow function, with fewer cells being produced. 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 The patient's condition has likely been present for some time, causing persistently low cell counts. She has not required blood transfusions recently, which is an improvement from her pre-liver transplant status when she frequently needed transfusions. The patient reports experiencing fatigue and significant hair loss. She denies any swelling when not taking her water pill. Rachelle's medical history is significant for uncontrolled diabetes, for which she is currently taking Ozempic. She is also on tacrolimus 1 mg for her liver transplant and memantine for memory loss. The patient is experiencing low blood pressure, possibly as a side effect of her current medications. The patient has not started any new treatments for her MDS, as the physician wants to consult with her primary care doctor and liver specialist before initiating therapy. She has been receiving injections to increase her white blood cell count, which will continue for now. Medications and Supplements - Tacrolimus 1 mg - Memantine - For memory loss - Ozempic - For blood sugar control - Side effect: low blood pressure - Propranolol - Furosemide - Erythropoietin injection - For increasing white cell count - Fluconazole Review of Systems General: Positive for fatigue, hair loss. Cardiovascular: Positive for low blood pressure. Objective: Vital Signs - Blood Pressure: 94/60 mmHg Laboratory, Imaging, and Diagnostic Test Results - Bone marrow biopsy: - Blast: 1% - Genetic test: 5q deletion - Previous results: - Hemoglobin: Low - White blood cell count: Low - Erythropoietin level: Ordered (results pending) Assessment and Plan: Alex Wiggins, an elderly female with a history of liver cirrhosis and liver transplant, presents with low hemoglobin and white cell count, diagnosed with myelodysplastic syndrome (MDS) with 5q deletion. Myelodysplastic Syndrome (MDS) with 5q deletion Assessment: Patient's bone marrow biopsy revealed decreased cell production without myelodysplasia. 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 The blast percentage is only 1%, ruling out leukemia (which requires >5% blasts in women). This condition has likely been present for some time, causing persistently low cell counts. The patient's MDS is classified as low-risk due to the specific 5q deletion mutation. Without treatment, cell counts may continue to decline, potentially progressing to leukemia. Plan: - Initiate chemotherapy with Revlimid (lenalidomide) - Subcutaneous injection for 4-5 days in a row, followed by a week break - Treatment is lifelong to prevent transfusion dependency - Do not start medication until follow-up appointment and review of notes - Order erythropoietin level test - Continue current shot for low white cell count - Consider adding baby aspirin for blood clot prevention - Refer to [facility] Hematology/Oncology for second opinion - Follow up in 4 weeks - Monitor blood counts and risk of blood clots Liver Cirrhosis status post liver transplant Assessment: Patient has a history of liver cirrhosis and underwent orthotopic liver transplant in 2019 for non-alcoholic steatohepatitis (STROUD). Currently on tacrolimus 1 mg for immunosuppression. The patient's blood work from 2013 and 2015 shows stability. There is concern that tacrolimus may be contributing to the development of MDS due to its immunosuppressive effects. Plan: - Consult with liver transplant team regarding management of immunosuppression in context of MDS diagnosis - Obtain and review previous EGD reports and liver transplant records - Continue tacrolimus 1 mg as prescribed by transplant team Uncontrolled Diabetes Mellitus Assessment: Patient has uncontrolled diabetes mellitus, currently managed with Ozempic (semaglutide). This medication may be contributing to the patient's low blood pressure (94/60) and fatigue. Plan: - Consult with primary care physician (Dr. Tate Hayes) regarding diabetes management - Recommend consideration of alternative diabetes medications (e.g., Jardiance, metformin) to avoid hypotension - Monitor blood pressure and adjust medications as needed Hypotension Assessment: Patient presents with low blood pressure (94/60), likely due to a combination of medications including Ozempic, propranolol, and furosemide. The propranolol may have been prescribed for portal hypertension management, but its necessity is unclear. Plan: - Consult with primary care physician and transplant team regarding medication adjustments - Consider discontinuation of furosemide if no signs of fluid overload - Reassess need for propranolol with transplant team - Monitor blood pressure regularly Memory Loss Assessment: Patient is currently taking memantine for memory loss. No further details provided about the severity or impact of memory issues. Plan: - Continue memantine as prescribed - Reassess cognitive function at follow-up visits Nutritional Deficiencies Assessment: Patient reports significant hair loss, which may be related to nutritional deficiencies secondary to medication side effects or underlying medical conditions. Plan: - Order comprehensive vitamin panel including B12 and folate levels - Supplement any deficient vitamins as indicated by lab results - Reassess hair loss and fatigue at follow-up visits ORDERS: Order # Description [id number] + Comprehensive Metabolic Panel - 12 + CBC with Auto Diff [id number] Erythropoieten Level [id number] Lactate Dehydrogenase (LDH) + Assay Of Haptoglobin Quant [id number] Vitamin B-12 + Folic Acid; Serum + Iron Panel + Ferritin [id number] MD Follow Up 4 Week RETURN TO CLINIC: BILLING AND COMPLIANCE: I reviewed external records from providers outside my specialty as summarized above. I spent a total of 50 minutes on this patient?s care on the day of their visit excluding time spent related to any billed procedures. This time includes time spent with the patient as well as time spent documenting in the medical record, reviewing patients records and tests, obtaining history, placing orders, communicating with other healthcare professionals, counseling the patient, family or caregiver, and/or care coordination for the diagnoses above. Electronically Signed by: Cliff Sibley MD T: 11:50 PM CC: Ariana?Rajeev? PCP: Valeriano Hilliard Referring: Valeriano Hilliard This document was completed utilizing speech recognition software. Grammatical errors, random word insertions, pronoun errors, and incomplete sentences are an occasional consequence of this system due to software limitations, ambient noise, and hardware issues. Any formal questions or concerns about the content, text or information contained within the body of this dictation should be directly addressed to the provider for clarification.
== END 2025-04-10 23:59 | disposition home or self-care (01) ==
LOC: SCTC 14:31
PROVIDERS: PCP Internal Medicine; Referring Provider Internal Medicine; Visit Provider Internal Medicine Hematology & Oncology
DX: D46.C Myelodysplastic syndrome with isolated del(5q) chromosomal abnormality (principal); Z94.4 Liver transplant status; E11.9 Type 2 diabetes mellitus without complications; Z79.85 Long-term (current) use of injectable non-insulin antidiabetic drugs; I95.9 Hypotension, unspecified; R41.3 Other amnesia; L65.9 Nonscarring hair loss, unspecified; T50.915D Adverse effect of multiple unspecified drugs, medicaments and biological substances, subsequent encounter
CPT/HCPCS: 96372; 99212; Q5101; G0463

== ENCOUNTER → 2025-04-08 | Outpatient (CLI) | payer MEDICARE, BC, SELFPAY ==
[2025-04-08 17:51] LABS: Basophils # (Auto) 0.1 Thou/mm3 (0.0-0.2); Basophils % (Auto) 1 % (0-2.5); Eosinophils # (Auto) 0.1 Thou/mm3 (0.0-0.5); Eosinophils % (Auto) 1 % (0-10); Hematocrit 30.2 % (36.0-46.0); Immature Granulocytes % (Auto) 0 % (0-0); Immature Granulocytes Auto 0.02 Thou/mm3 (0.00-0.00); Lymphocytes % (Auto) 12 % (10-50); Mean Corpuscular HGB Conc 33.1 g/dl (31.0-37.0); Mean Corpuscular Hemoglobin 28.7 pg (25.0-35.0); Mean Corpuscular Volume 87 fL (80-100); Monocytes # (Auto) 0.4 Thou/mm3 (0.0-0.8); Monocytes % (Auto) 6 % (0-12); Neutrophils # (Auto) 6.3 Thou/mm3 (1.8-7.7); Neutrophils % (Auto) 80 % (37-80); Nucleated Red Blood Cell % 0 /100 WBC (0); Platelet Count 97 Thou/mm3 (140-440); RDW Standard Deviation 49.4 fL (36.4-46.3); Red Blood Count 3.49 Miln/mm3 (4.00-5.20); White Blood Count 7.9 Thou/mm3 (3.6-11.0)
[2025-04-08 18:20] LABS: Alanine Aminotransferase < 7 U/L (10-49); Albumin, Serum 4.3 gm/dL (3.4-4.8); Albumin/Globulin Ratio 1.7 (1.2-2.2); Alkaline Phosphatase 93 U/L (46-116); Anion Gap 11 (7-16); Aspartate Amino Transferase 15 U/L (0-34); BUN/Creatinine Ratio 20 Ratio (12-20); Bilirubin,Total 0.5 mg/dL (0.3-1.2); Blood Urea Nitrogen 48 mg/dL (9-23); Calcium 8.9 mg/dL (8.3-10.6); Calcium (Corrected) 8.9 mg/dL (8.5-10.1); Carbon Dioxide 21.7 mMol/L (20.0-31.0); Chloride 110 mMol/L (98-107); Creatinine (Component) 2.4 mg/dL (0.6-1.3); Globulin 2.5 gm/dL (2.3-3.5); Glucose 108 mg/dL (74-106); Osmolality,Calculated 298 (275-295); Potassium 4.4 mMol/L (3.4-5.1); Sodium 143 mMol/L (136-145); Total Protein 6.8 gm/dL (5.7-8.2); eGFR 21 See Note
[2025-04-13 06:34] LABS: Erythropoietin (EPO)* 9.1 mIU/mL (2.6-18.5)
== END | disposition home or self-care (01) ==
PROVIDERS: PCP Internal Medicine; Referring Provider Internal Medicine Hematology & Oncology; Visit Provider Internal Medicine Hematology & Oncology
DX: D61.818 Other pancytopenia (principal)
CPT/HCPCS: 36415; 80053; 82668; 85025

== ENCOUNTER 2025-05-05 14:09 | Outpatient (RCR) | payer MEDICARE, BC, SELFPAY | END 2025-05-10 23:59 | disposition home or self-care (01) | LOC: SCTC 14:09 | PROVIDERS: PCP Internal Medicine; Referring Provider Internal Medicine; Visit Provider Internal Medicine Hematology & Oncology | DX: D46.C Myelodysplastic syndrome with isolated del(5q) chromosomal abnormality (principal); Z94.4 Liver transplant status; I95.9 Hypotension, unspecified; R41.3 Other amnesia; E11.9 Type 2 diabetes mellitus without complications; Z79.85 Long-term (current) use of injectable non-insulin antidiabetic drugs | CPT/HCPCS: 96372; Q5101 ==

== ENCOUNTER → 2025-05-06 | Outpatient (CLI) | payer MEDICARE, BC, SELFPAY ==
[2025-05-06 08:27] LABS: Basophils % (Auto) 0 % (0-2.5); Eosinophils # (Auto) 0.1 Thou/mm3 (0.0-0.5); Eosinophils % (Auto) 1 % (0-10); Hematocrit 27.9 % (36.0-46.0); Hemoglobin 9.3 g/dL (12.0-16.0); Immature Granulocytes % (Auto) 0 % (0-0); Immature Granulocytes Auto 0.04 Thou/mm3 (0.00-0.00); Lymphocytes % (Auto) 10 % (10-50); Mean Corpuscular HGB Conc 33.3 g/dl (31.0-37.0); Mean Corpuscular Hemoglobin 29.4 pg (25.0-35.0); Mean Corpuscular Volume 88 fL (80-100); Monocytes # (Auto) 0.4 Thou/mm3 (0.0-0.8); Monocytes % (Auto) 4 % (0-12); Neutrophils # (Auto) 7.7 Thou/mm3 (1.8-7.7); Neutrophils % (Auto) 84 % (37-80); Nucleated Red Blood Cell % 0 /100 WBC (0); Platelet Count 80 Thou/mm3 (140-440); RDW Standard Deviation 49.9 fL (36.4-46.3); Red Blood Count 3.16 Miln/mm3 (4.00-5.20); White Blood Count 9.2 Thou/mm3 (3.6-11.0)
[2025-05-06 08:50] LABS: Ferritin 67 ng/mL (7.3-270.7); Iron 61 mcg/dL (50-170); Percent Iron Saturation 25 % (20-55); Total Iron Binding Capacity 239 mcg/dL (250-425); Unsaturated Iron Binding 178 (225-295)
[2025-05-06 08:57] LABS: Folate > 24.00 ng/mL (>5.38); Vitamin B12 1266 pg/mL (211-911)
[2025-05-06 08:59] LABS: Alanine Aminotransferase 10 U/L (10-49); Albumin, Serum 3.8 gm/dL (3.4-4.8); Albumin/Globulin Ratio 1.8 (1.2-2.2); Alkaline Phosphatase 76 U/L (46-116); Anion Gap 11 (7-16); Aspartate Amino Transferase 19 U/L (0-34); BUN/Creatinine Ratio 14 Ratio (12-20); Bilirubin,Total 0.4 mg/dL (0.3-1.2); Blood Urea Nitrogen 32 mg/dL (9-23); Calcium 8.7 mg/dL (8.3-10.6); Calcium (Corrected) 8.9 mg/dL (8.5-10.1); Carbon Dioxide 22.5 mMol/L (20.0-31.0); Chloride 113 mMol/L (98-107); Creatinine (Component) 2.3 mg/dL (0.6-1.3); Globulin 2.1 gm/dL (2.3-3.5); Glucose 114 mg/dL (74-106); LDH (Lactate Dehydrogenase) 215 U/L (120-246); Osmolality,Calculated 298 (275-295); Potassium 4.2 mMol/L (3.4-5.1); Sodium 146 mMol/L (136-145); Total Protein 5.9 gm/dL (5.7-8.2); eGFR 22 See Note
[2025-05-06 10:03] LABS: Band Neutrophils (Manual) 23 % (0-6); Eosinophils (Manual) 1 % (0-4); Lymphocytes (Manual) 4 % (20-44); Monocytes (Manual) 2 % (2-9); Myelocytes (Manual) 3 % (0-0); Neutrophils (Manual) 67 % (50-70)
[2025-05-13 06:27] LABS: Erythropoietin (EPO)* 12.4 mIU/mL (2.6-18.5); Haptoglobin* 61 mg/dL (43-212)
== END | disposition home or self-care (01) ==
LOC: SCTO 07:25
PROVIDERS: PCP Internal Medicine; Referring Provider Internal Medicine Hematology & Oncology; Visit Provider Internal Medicine Hematology & Oncology
DX: D61.818 Other pancytopenia (principal)
CPT/HCPCS: 36415; 80053; 82607; 82668; 82728; 82746; 83010; 83540; 83550; 83615; 85025

== ENCOUNTER → 2025-05-26 | Outpatient (CLI) | payer MEDICARE, BC, SELFPAY ==
[2025-05-26 15:11] LABS: Basophils # (Auto) 0.0 Thou/mm3 (0.0-0.2); Basophils % (Auto) 1 % (0-2.5); Eosinophils # (Auto) 0.1 Thou/mm3 (0.0-0.5); Eosinophils % (Auto) 3 % (0-10); Hematocrit 30.5 % (36.0-46.0); Hemoglobin 10.3 g/dL (12.0-16.0); Immature Granulocytes Auto 0.01 Thou/mm3 (0.00-0.00); Lymphocytes # (Auto) 1.0 Thou/mm3 (1.0-4.8); Lymphocytes % (Auto) 64 % (10-50); Mean Corpuscular HGB Conc 33.8 g/dl (31.0-37.0); Mean Corpuscular Hemoglobin 29.9 pg (25.0-35.0); Mean Corpuscular Volume 88 fL (80-100); Monocytes # (Auto) 0.2 Thou/mm3 (0.0-0.8); Monocytes % (Auto) 10 % (0-12); Neutrophils # (Auto) 0.3 Thou/mm3 (1.8-7.7); Neutrophils % (Auto) 22 % (37-80); Nucleated Red Blood Cell # 0.00 Thou/mm3 (0.00-0.00); Nucleated Red Blood Cell % 0 /100 WBC (0); Platelet Count 88 Thou/mm3 (140-440); RDW Standard Deviation 45.5 fL (36.4-46.3); Red Blood Count 3.45 Miln/mm3 (4.00-5.20)
[2025-05-26 15:33] LABS: Alanine Aminotransferase 7 U/L (10-49); Albumin, Serum 4.2 gm/dL (3.4-4.8); Albumin/Globulin Ratio 1.6 (1.2-2.2); Alkaline Phosphatase 81 U/L (46-116); Anion Gap 9 (7-16); Aspartate Amino Transferase 16 U/L (0-34); BUN/Creatinine Ratio 12 Ratio (12-20); Bilirubin,Total 0.4 mg/dL (0.3-1.2); Blood Urea Nitrogen 23 mg/dL (9-23); Calcium 9.0 mg/dL (8.3-10.6); Calcium (Corrected) 9.0 mg/dL (8.5-10.1); Carbon Dioxide 27.4 mMol/L (20.0-31.0); Chloride 108 mMol/L (98-107); Creatinine (Component) 2.0 mg/dL (0.6-1.3); Globulin 2.7 gm/dL (2.3-3.5); Glucose 103 mg/dL (74-106); Osmolality,Calculated 290 (275-295); Potassium 4.4 mMol/L (3.4-5.1); Sodium 144 mMol/L (136-145); Total Protein 6.9 gm/dL (5.7-8.2); eGFR 26 See Note
[2025-05-26 15:35] LABS: White Blood Count 1.6 Thou/mm3 (3.6-11.0)
== END | disposition home or self-care (01) ==
LOC: COPL 14:09
PROVIDERS: PCP Internal Medicine; Referring Provider Internal Medicine Hematology & Oncology; Visit Provider Internal Medicine Hematology & Oncology
DX: D61.818 Other pancytopenia (principal)
CPT/HCPCS: 36415; 80053; 85025

== ENCOUNTER 2025-06-09 14:14 | Outpatient (RCR) | payer MEDICARE, BC, SELFPAY | END 2025-06-10 23:59 | disposition home or self-care (01) | LOC: SCTC 14:14 | PROVIDERS: PCP Internal Medicine; Referring Provider Internal Medicine; Visit Provider Internal Medicine Hematology & Oncology | DX: D61.818 Other pancytopenia (principal); D46.C Myelodysplastic syndrome with isolated del(5q) chromosomal abnormality; Z87.19 Personal history of other diseases of the digestive system; Z94.4 Liver transplant status; E11.9 Type 2 diabetes mellitus without complications; Z79.85 Long-term (current) use of injectable non-insulin antidiabetic drugs; I95.9 Hypotension, unspecified; R41.3 Other amnesia; E63.9 Nutritional deficiency, unspecified | CPT/HCPCS: 96372; Q5101 ==

== ENCOUNTER → 2025-06-22 | Outpatient (CLI) | payer MEDICARE, BC, SELFPAY ==
[2025-06-22 08:11] LABS: Collection Type, Urine Clean Catch
[2025-06-22 08:49] LABS: Basophils # (Auto) 0.0 Thou/mm3 (0.0-0.2); Basophils % (Auto) 1 % (0-2.5); Eosinophils # (Auto) 0.1 Thou/mm3 (0.0-0.5); Eosinophils % (Auto) 2 % (0-10); Glucose Estimated Average 108 mg/dL (80-131); Hematocrit 34.0 % (36.0-46.0); Hemoglobin 11.0 g/dL (12.0-16.0); Hemoglobin A1C 5.4 % Hgb (4.8-6.0); Immature Granulocytes Auto 0.01 Thou/mm3 (0.00-0.00); Lymphocytes # (Auto) 1.1 Thou/mm3 (1.0-4.8); Lymphocytes % (Auto) 30 % (10-50); Mean Corpuscular HGB Conc 32.4 g/dl (31.0-37.0); Mean Corpuscular Hemoglobin 29.7 pg (25.0-35.0); Mean Corpuscular Volume 92 fL (80-100); Monocytes # (Auto) 0.2 Thou/mm3 (0.0-0.8); Monocytes % (Auto) 5 % (0-12); Neutrophils # (Auto) 2.2 Thou/mm3 (1.8-7.7); Neutrophils % (Auto) 62 % (37-80); Nucleated Red Blood Cell # 0.00 Thou/mm3 (0.00-0.00); Nucleated Red Blood Cell % 0 /100 WBC (0); Platelet Count 81 Thou/mm3 (140-440); RDW Standard Deviation 46.2 fL (36.4-46.3); Red Blood Count 3.70 Miln/mm3 (4.00-5.20); White Blood Count 3.6 Thou/mm3 (3.6-11.0)
[2025-06-22 08:53] LABS: Bilirubin,Urine Negative (Negative); Blood,Urine Negative (Negative); Clarity,Urine Clear (Clear/Hazy); Color,Urine Lt-Yellow (Lt Yel-Yel); Glucose, Urine Negative (Negative); Hyaline Casts,Urine < 1 /hpf (0-1); Ketones,Urine Negative (Negative); Leukocyte Esterase,Urine Positive (Negative); Nitrite,Urine Negative (Negative); PH,Urine 6.0 (5.0-7.0); Protein,Urine Negative (Neg - Trace); RBC,Urine 2 /hpf (0-3); Specific Gravity,Urine 1.010 (1.001-1.035); Squamous Epithelial Cell,Urine < 1 /hpf (0-5); Urobilinogen,Urine Negative mg/dL (0.0-1.0); WBC,Urine 1 /hpf (0-5)
[2025-06-22 08:59] LABS: Parathyroid Hormone Intact 98.9 pg/ml (18.5-88.0)
[2025-06-22 09:07] LABS: Alanine Aminotransferase 7 U/L (10-49); Albumin, Serum 4.2 gm/dL (3.4-4.8); Albumin/Globulin Ratio 1.4 (1.2-2.2); Alkaline Phosphatase 84 U/L (46-116); Anion Gap 9 (7-16); Aspartate Amino Transferase 17 U/L (0-34); BUN/Creatinine Ratio 13 Ratio (12-20); Bilirubin,Total 0.4 mg/dL (0.3-1.2); Blood Urea Nitrogen 31 mg/dL (9-23); Calcium 9.5 mg/dL (8.3-10.6); Calcium (Corrected) 9.5 mg/dL (8.5-10.1); Carbon Dioxide 25.3 mMol/L (20.0-31.0); Cardiac Risk Estimate 4.1 RATIO (3.7-5.6); Chloride 107 mMol/L (98-107); Cholesterol 140 mg/dL (132-200); Creatinine (Component) 2.3 mg/dL (0.6-1.3); Globulin 2.9 gm/dL (2.3-3.5); Glucose 105 mg/dL (74-106); HDL Cholesterol 34 mg/dL (40-60); LDL Cholesterol,Calculated 52 mg/dL (0-130); Osmolality,Calculated 287 (275-295); Potassium 5.2 mMol/L (3.4-5.1); Sodium 141 mMol/L (136-145); Thyroid Stimulating Hormone 2.39 uIU/mL (0.55-4.78); Total Protein 7.1 gm/dL (5.7-8.2); Triglycerides 272 mg/dL (30-150); Uric Acid 8.1 mg/dL (3.1-7.8); eGFR 22 See Note
[2025-06-22 09:22] LABS: Creatinine MALB Rnd Ur 47 mg/dL (30-125); Microalbumin, Random Urine < 3 mg/L (0-300)
[2025-06-22 09:22] LABS: Vitamin D 25 Hydroxy Total 47.7 ng/mL (7.3-40.2)
[2025-06-23 16:01] LABS: Vitamin B12 522 pg/mL (211-911)
== END | disposition home or self-care (01) ==
PROVIDERS: PCP Internal Medicine; Referring Provider Internal Medicine; Visit Provider Internal Medicine Hematology & Oncology
DX: E78.5 Hyperlipidemia, unspecified (principal); I12.9 Hypertensive chronic kidney disease with stage 1 through stage 4 chronic kidney disease, or unspecified chronic kidney disease; N18.4 Chronic kidney disease, stage 4 (severe); E11.22 Type 2 diabetes mellitus with diabetic chronic kidney disease; D50.8 Other iron deficiency anemias; D51.9 Vitamin B12 deficiency anemia, unspecified; E55.9 Vitamin D deficiency, unspecified; Z94.4 Liver transplant status
CPT/HCPCS: 36415; 80053; 80061; 81001; 82043; 82306; 82570; 82607; 83036; 83970; 84443; 84550; 85025

== ENCOUNTER → 2025-06-24 | Outpatient (CLI) | payer MEDICARE, BC, SELFPAY ==
[2025-06-24 08:27] LABS: OBS Performed By LAB; OBS QC OK? Yes
[2025-06-24 10:02] LABS: OBS Developer Lot # 551749
[2025-06-24 10:03] LABS: Occult Blood, Stool Negative (Negative); Occult Blood, Stool #2 Negative (Negative); Occult Blood, Stool #3 Negative (Negative)
== END | disposition home or self-care (01) ==
PROVIDERS: Referring Provider Internal Medicine; Visit Provider Internal Medicine
DX: Z12.11 Encounter for screening for malignant neoplasm of colon (principal)
CPT/HCPCS: 82270

== ENCOUNTER → 2025-07-06 | Outpatient (CLI) | payer MEDICARE, BC, SELFPAY ==
[2025-07-06 08:57] LABS: Alanine Aminotransferase 11 U/L (10-49); Albumin, Serum 3.9 gm/dL (3.4-4.8); Albumin/Globulin Ratio 1.4 (1.2-2.2); Alkaline Phosphatase 86 U/L (46-116); Anion Gap 9 (7-16); Aspartate Amino Transferase 14 U/L (0-34); BUN/Creatinine Ratio 18 Ratio (12-20); Bilirubin,Total 0.3 mg/dL (0.3-1.2); Blood Urea Nitrogen 37 mg/dL (9-23); Calcium 9.4 mg/dL (8.3-10.6); Calcium (Corrected) 9.5 mg/dL (8.5-10.1); Carbon Dioxide 24.8 mMol/L (20.0-31.0); Chloride 110 mMol/L (98-107); Creatinine (Component) 2.1 mg/dL (0.6-1.3); Globulin 2.7 gm/dL (2.3-3.5); Glucose 105 mg/dL (74-106); Osmolality,Calculated 295 (275-295); Potassium 5.3 mMol/L (3.4-5.1); Sodium 144 mMol/L (136-145); Total Protein 6.6 gm/dL (5.7-8.2); eGFR 24 See Note
[2025-07-06 08:58] LABS: Basophils # (Auto) 0.0 Thou/mm3 (0.0-0.2); Basophils % (Auto) 0 % (0-2.5); Eosinophils # (Auto) 0.1 Thou/mm3 (0.0-0.5); Eosinophils % (Auto) 3 % (0-10); Hematocrit 31.7 % (36.0-46.0); Hemoglobin 10.5 g/dL (12.0-16.0); Immature Granulocytes Auto 0.01 Thou/mm3 (0.00-0.00); Lymphocytes # (Auto) 1.0 Thou/mm3 (1.0-4.8); Lymphocytes % (Auto) 35 % (10-50); Mean Corpuscular HGB Conc 33.1 g/dl (31.0-37.0); Mean Corpuscular Hemoglobin 29.8 pg (25.0-35.0); Mean Corpuscular Volume 90 fL (80-100); Monocytes # (Auto) 0.2 Thou/mm3 (0.0-0.8); Monocytes % (Auto) 7 % (0-12); Neutrophils # (Auto) 1.5 Thou/mm3 (1.8-7.7); Neutrophils % (Auto) 54 % (37-80); Nucleated Red Blood Cell # 0.00 Thou/mm3 (0.00-0.00); Nucleated Red Blood Cell % 0 /100 WBC (0); Platelet Count 89 Thou/mm3 (140-440); RDW Standard Deviation 46.8 fL (36.4-46.3); Red Blood Count 3.52 Miln/mm3 (4.00-5.20); White Blood Count 2.7 Thou/mm3 (3.6-11.0)
[2025-07-06 09:12] LABS: Ferritin 57 ng/mL (7.3-270.7); Iron 59 mcg/dL (50-170); Percent Iron Saturation 21 % (20-55); Total Iron Binding Capacity 272 mcg/dL (250-425); Unsaturated Iron Binding 213 (225-295)
[2025-07-06 09:14] LABS: Folate > 24.00 ng/mL (>5.38); Vitamin B12 714 pg/mL (211-911)
== END | disposition home or self-care (01) ==
PROVIDERS: PCP Internal Medicine; Referring Provider Internal Medicine Hematology & Oncology; Visit Provider Internal Medicine Hematology & Oncology
DX: D61.818 Other pancytopenia (principal)
CPT/HCPCS: 36415; 80053; 82607; 82728; 82746; 83540; 83550; 85025

== ENCOUNTER 2025-07-07 13:49 | Outpatient (RCR) | payer MEDICARE, BC, SELFPAY ==
--- NOTE | 2025-06-28 13:25 | CTCFLWUP_ITS ---
Patient: RACHELLE JOHNSON : 1950 Page 2 of 2 FOLLOW UP NOTE DATE OF SERVICE: 06/24/2025 NAME: RACHELLE JOHNSON ACCOUNT: [id number] : 1950 AGE: 74 INTERVAL HISTORY: Subjective: Chief Complaint Follow-up for low hemoglobin and white cell count, bone marrow biopsy results History of Present Illness Alex Wiggins, a female patient with a history of liver cirrhosis and liver transplant, presents for follow-up of persistently low blood cell counts. A recent bone marrow biopsy revealed concerns about her bone marrow function, with fewer cells being produced. 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 The patient's condition has likely been present for some time, causing persistently low cell counts. She has not required blood transfusions recently, which is an improvement from her pre-liver transplant status when she frequently needed transfusions. The patient reports experiencing fatigue and significant hair loss. She denies any swelling when not taking her water pill. Rachelle's medical history is significant for uncontrolled diabetes, for which she is currently taking Ozempic. She is also on tacrolimus 1 mg for her liver transplant and memantine for memory loss. The patient is experiencing low blood pressure, possibly as a side effect of her current medications. Mds treatment was not recommended and advise was to start her on Procrit . Medications and Supplements - Tacrolimus 1 mg - Memantine - For memory loss - Ozempic - For blood sugar control - Side effect: low blood pressure - Propranolol - Furosemide - Erythropoietin injection - For increasing white cell count - Fluconazole Review of Systems General: Positive for fatigue, hair loss. Cardiovascular: Positive for low blood pressure. Objective: Vital Signs - Blood Pressure: 94/60 mmHg Laboratory, Imaging, and Diagnostic Test Results - Bone marrow biopsy: - Blast: 1% - Genetic test: 5q deletion - Previous results: - Hemoglobin: Low - White blood cell count: Low - Erythropoietin level: Ordered (results pending) ONCOLOGY HISTORY:?[facility] Hx? 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 Currently on Neupogen (zarixio) 300 mcg subcu once a week. Chronic renal insufficiency previously on Procrit 10,000 units subcu once a week Status post liver transplant in November 2019 for cirrhosis of the liver caused by fatty infiltration. 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 Weekly Neupogen (filgrastim) 300 mcg PANCYTOPENIA [ICD9] 284.1*; CIRRHOSIS OF LIVER NOS [ICD9] 571.5*; PANCYTOPENIA [ICD9] 284.1*; CIRRHOSIS OF LIVER NOS [ICD9] 571.5*; Other pancytopenia [ICD10] D61.818 DATE OF DIAGNOSIS: STAGE/TNM: TREATMENT HISTORY: Care?Plan Start?Date Cycle Day Intent VENOfer?200mg?IV?wkly 11/02/2020 1 70 Palliative HISTORY OF PRESENT ILLNESS: Ms. Johnson is here at [facility]. Patient is accompanied by her . Currently she is on weekly Neupogen (filgrastim) injections. She gets CBC every other week. Ambulating well without any help. Has good appetite and good energy levels. Patient denies headache dizziness vision changes nausea. Patient following up with transplant center every 3 months, she is also following up with nephrology, Dr. Rodriguez, [facility] every 6 months. HISTORY: Rachelle Johnson is a 74-year-old ENG speaking female with longstanding history of anemia at least for the last 10 years, status post multiple packed cell transfusions at least twice a year for last 10 years is referred to hematology clinic to evaluate the cause for her chronic anemia. Her last blood transfusion was about 2 weeks ago. Labs drawn on 06/27/2020 showed her hemoglobin to be 6.7 with an MCV of 98, WBC 2.5 with an ANC of 1.8, and platelet count of 67,000. Patient was sent to emergency room where she received 2 units of packed cell transfusion. Labs drawn yesterday showed her hemoglobin to be 10.2. 10/07/2019: Colonoscopy? November 2019: Patient had liver transplant at [facility] for cirrhosis of the liver thought to be secondary to fatty infiltration. 03/25/2020: Upper GI endoscopy? May 2020: Patient had aortic valve replacement with pig valve at [facility]. Chronic renal insufficiency with a creatinine of 1.81 and EGFR of 28. Currently patient is taking Procrit 10,000 units subcu once a week at home. 06/27/2020: WBC 2.5, ANC 1.8, hemoglobin 6.7, MCV 98, platelets 67,000. Creatinine 1.7, EGFR 32. Patient had 2 units of packed cell transfusion. 07/11/2020: Hemoglobin 10.2, MCV 94, WBC 2.3, ANC 1.4, platelets 64,000. 07/14/2020: WBC 2.0, ANC 1.3, hemoglobin 10.4, MCV 94, platelets 62,000, creatinine 1.73, EGFR 29, iron saturation 48%, ferritin 45, B12 558, folate 18.3, TSH 1.1, Stefanie test negative. Patient stopped Procrit on the advice of Dr. 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 08/02/2020: WBC 2.1, ANC 1.2, hemoglobin 9.4, MCV 92, platelets 47,000 09/13/2020: WBC 2.0, ANC 1.1, hemoglobin 9.2, platelets 78,000. 10/18/2020: Bone marrow biopsy and aspiration? 10/24/2020: WBC 1.8, ANC 1.1, hemoglobin 10, MCV 83, platelets 59,000, iron saturation 14%, ferritin 17, vitamin B12 is 596, folic acid more than 20. Erythropoietin 38.5 (2.6?18.5) currently patient is on Procrit 10,000 units subcu once a week. 11/14/2020: Tacrolimus level 8.9 (2.0?20.0), WBC 1.4, ANC 0.8, hemoglobin 9.8, MCV 83, platelets 57,000. 06/21/2021: WBC 1.8, ANC 1.0, hemoglobin 10.8, MCV 93, platelets 55,000. 08/22/2021: WBC 2.1, ANC 1.3, hemoglobin 11.3, MCV 93, platelets 54,000. 08/31/2021: Patient is started on weekly Neupogen 300 mcg subcu. 10/24/2021: WBC 2.4, ANC 1.3, hemoglobin 11.2, MCV 91, platelets 87,000. 12/25/2021: WBC 2.8, ANC 1.8, hemoglobin 11.1, MCV 91, platelets 70,000. 10/29/2022: WBC 2.6, ANC 1.5, hemoglobin 10.8, MCV 90, platelets 80,000. 10/24/2023: WBC 9.2, ANC 7.8, hemoglobin 10.1, MCV 93, platelets 84,000 01/07/2024: WBC 2.5, ANC 1.6, hemoglobin 9.2, MCV 89, platelets 75,000 01/23/2024: WBC 7.7, ANC 6.4, hemoglobin 9.6, MCV 90, platelets 85,000 02/11/2024: WBC 1.9, ANC 1.1, hemoglobin 9.6, MCV 88, platelets 74,000 02/24/2024: WBC 2.3, ANC 1.4, hemoglobin 10.4, MCV 89, platelets 86,000 04/08/2024: WBC 1.8, ANC 0.9, hemoglobin 9.9, MCV 88, platelets 76,000 04/28/2024: WBC 2.6, ANC 1.7, hemoglobin 9.8, MCV 89, platelets 80,000 05/26/2024: WBC 3.2, ANC 2.0, hemoglobin 9.8, MCV 89, platelets 127,000 06/17/2024: WBC 1.3, ANC 0.4, hemoglobin 9.8, MCV 98, platelets 78,000 07/07/2024: WBC 2.0, ANC 1.2, hemoglobin 9.6, MCV 91, platelets 91,000 07/21/2024: WBC 2.3, ANC 1.4, hemoglobin 10.1, MCV 89, platelets 87,000 08/21/2024: WBC 6.2, ANC 5.2, hemoglobin 10.2, MCV 90, platelets 83,000 09/08/2024: WBC 2.3, ANC 12.3, hemoglobin 10.3, MCV 90, platelets 94,000 OTHER MEDICAL HISTORY/CONDITIONS: Anemia Chronic kidney disease follows up with Dr. 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 buPROPion HCl - 100 mg 1 tab Daily 2. Calcium 600 - 600 mg Daily 3. escitalopram oxalate - 20 mg 1 tab Daily 4. fluconazole - 100 mg 1 tab Daily 5. gabapentin - 300 mg 1 Capsule Daily 6. Lasix - 40 mg 1 tab Twice a Day 7. melatonin - 5 mg 2 tab Every day before sleep 8. mycophenolate mofetiL - 250 mg 1 Capsule Twice a Day 9. Nephro-Saloni - 0.8 mg 1 tab Daily 10. ondansetron HCl - 4 mg 1 tab As needed 11. Ozempic - 1 mg/dose (2 mg/1.5 mL) Weekly 12. pantoprazole - 40 mg 1 tab Daily 13. QUEtiapine - 25 mg 0.5 tab Every day before sleep 14. tacrolimus - 1 mg 2 Capsule Twice a Day 15. ursodiol - 300 mg 1 Capsule Three times a day 16. Vitamin B-1 - 100 mg 1 tab Daily?Palabra Meds? Medications Last Reconciled by Rachelle Patel MD on 06/24/2025 ALLERGIES: No Known Drug Allergies REVIEW OF SYSTEMS: A complete 14-point review of systems was performed and is negative except as noted in interval history. PHYSICAL EXAMINATION:?[facility] PE? VITAL SIGNS: Temperature?97.1, B/P?109/65, Oxygen?Saturation?98% Weight?123?lbs (Change?since?06/09/25:?0?lbs) PAIN: 0 - No pain GENERAL APPEARANCE: Appears well, in no apparent distress, appropriately interactive. HEENT: Normocephalic, no temporal wasting, normal conjunctiva, no scleral icterus, normal hearing, lips without lesions, neck normal range of motion, no neck lymphadenopathy, erythema to back of throat, no white exudate CARDIOVASCULAR: Normal heart sounds PULMONARY: Normal respiratory effort, no respiratory distress or use of accessory muscles, speaking in full sentences, no tachypnea. EXTREMITIES: No pedal edema or cyanosis. SKIN: Normal skin appearance, no rash, no bruising. NEUROLOGIC: Alert and oriented x4. PSHYCHIATRIC: Appropriate affect, mood normal, behavior normal, intact thought and speech. LABORATORY DATA: I have personally reviewed and interpreted each of the patient?s relevant lab tests, abnormal findings are below: Date 05/26/25 06/22/25 ??WHITE?BLOOD?COUNT?(Thou/mm3) 1.6?L 3.6 ??RED?BLOOD?COUNT?(Miln/mm3) 3.45?L 3.70?L ??HEMOGLOBIN?(gm/dl) 10.3?L 11.0?L ??HEMATOCRIT?(%) 30.5?L 34.0?L ??PLATELET?COUNT?(Thou/mm3) 88?L 81?L ??NEUTROPHILS?%,?AUTO?(%) 22?L 62 ??LYMPH?%,?AUTO?(%) 64?H 30 ??NEUTROPHILS,?AUTO?(Thou/mm3) 0.3?L 2.2 ??GLUCOSE,RANDOM?(mg/dL) 103 105 ??BLOOD?UREA?NITROGEN?(mg/dL) 23 31?H ??CREATININE?(mg/dL) 2.00?H 2.30?H ??SODIUM?(mmol/L) 144 141 ??POTASSIUM?(mmol/L) 4.4 5.2?H ??CHLORIDE?(mmol/L) 108?H 107 ??CrCl?(CandG)?(ml/min) 21.89 18.61 ??AST/SGOT?(Unit/L) 16 17 ??ALT/SGPT?(Unit/L) 7?L 7?L ??ALKALINE?PHOSPHATASE?(Unit/L) 81 84 ??BILIRUBIN,?TOTAL?(mg/dL) 0.4 0.4 ??PROTEIN?TOTAL?(gm/dl) 6.9 7.1 ??ALBUMIN,?SERUM?(gm/dl) 4.2 4.2 ??GLOBULIN?(gm/dl) 2.7 2.9 ??ALBUMIN/GLOBULIN?RATIO 1.6 1.4 ??CALCIUM,?SERUM?(mg/dL) 9.0 9.5 ??CALCIUM?SERUM?(CORRECTED)?(mg/dL) 9.0 9.5 ASSESSMENT/PLAN:?[facility] Assessment/Plan? 1. 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 Currently on Neupogen (zarixio) 300 mcg subcu once a week. Tacrolimus 2 mg p.o. twice daily. Tacrolimus which is known to cause pancytopenia in liver transplantation patients. In patients who are taking tacrolimus for liver transplantation the incidence of anemia is 47%, thrombocytopenia 24%. Status post liver transplant in November 2019 for cirrhosis of the liver caused by fatty infiltration. 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 Currently Ms. Johnson is a weekly Neupogen (filgrastim) 300 mcg subcu once a week Patient's bone marrow biopsy revealed decreased cell production without myelodysplasia. 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 The blast percentage is only 1%, ruling out leukemia (which requires >5% blasts in women). This condition has likely been present for some time, causing persistently low cell counts. The patient's MDS is classified as low-risk due to the specific 5q deletion mutation. Without treatment, cell counts may continue to decline, potentially progressing to leukemia. No revalmid or chemo per consult recs Will start on Procrit Liver Cirrhosis status post liver transplant Assessment: Patient has a history of liver cirrhosis and underwent orthotopic liver transplant in 2019 for non-alcoholic steatohepatitis (STROUD). Currently on tacrolimus 1 mg for immunosuppression. The patient's blood work from 2013 and 2015 shows stability. There is concern that tacrolimus may be contributing to the development of MDS due to its immunosuppressive effects. - Continue tacrolimus 1 mg as prescribed by transplant team Uncontrolled Diabetes Mellitus Assessment: Patient has uncontrolled diabetes mellitus, currently managed with Ozempic (semaglutide). This medication may be contributing to the patient's low blood pressure (94/60) and fatigue. Plan: - Consult with primary care physician (Dr. Tate Hayes) regarding diabetes management - Recommend consideration of alternative diabetes medications (e.g., Jardiance, metformin) to avoid hypotension - Monitor blood pressure and adjust medications as needed Hypotension Assessment: Patient presents with low blood pressure (94/60), likely due to a combination of medications including Ozempic, propranolol, and furosemide. The propranolol may have been prescribed for portal hypertension management, but its necessity is unclear. Plan: - Consult with primary care physician and transplant team regarding medication adjustments - Consider discontinuation of furosemide if no signs of fluid overload - Reassess need for propranolol with transplant team - Monitor blood pressure regularly Memory Loss Assessment: Patient is currently taking memantine for memory loss. No further details provided about the severity or impact of memory issues. Plan: - Continue memantine as prescribed - Reassess cognitive function at follow-up visits Nutritional Deficiencies Assessment: Patient reports significant hair loss, which may be related to nutritional deficiencies secondary to medication side effects or underlying medical conditions. Plan: - Order comprehensive vitamin panel including B12 and folate levels - Supplement any deficient vitamins as indicated by lab results - Reassess hair loss and fatigue at follow-up visits
== END 2025-07-11 23:59 | disposition home or self-care (01) ==
LOC: SCTC 13:49
PROVIDERS: PCP Internal Medicine; Referring Provider Internal Medicine; Visit Provider Internal Medicine Hematology & Oncology
DX: D61.818 Other pancytopenia (principal); Z94.4 Liver transplant status; Z95.3 Presence of xenogenic heart valve; E11.9 Type 2 diabetes mellitus without complications; I95.9 Hypotension, unspecified; R41.3 Other amnesia
CPT/HCPCS: 82270; 99212; G0463

== ENCOUNTER → 2025-07-20 | Outpatient (CLI) | payer MEDICARE, BC, SELFPAY ==
[2025-07-20 08:55] LABS: Basophils # (Auto) 0.0 Thou/mm3 (0.0-0.2); Basophils % (Auto) 0 % (0-2.5); Eosinophils # (Auto) 0.0 Thou/mm3 (0.0-0.5); Eosinophils % (Auto) 2 % (0-10); Hematocrit 31.9 % (36.0-46.0); Hemoglobin 10.4 g/dL (12.0-16.0); Immature Granulocytes Auto 0.01 Thou/mm3 (0.00-0.00); Lymphocytes # (Auto) 1.0 Thou/mm3 (1.0-4.8); Lymphocytes % (Auto) 39 % (10-50); Mean Corpuscular HGB Conc 32.6 g/dl (31.0-37.0); Mean Corpuscular Hemoglobin 29.7 pg (25.0-35.0); Mean Corpuscular Volume 91 fL (80-100); Monocytes # (Auto) 0.1 Thou/mm3 (0.0-0.8); Monocytes % (Auto) 6 % (0-12); Neutrophils # (Auto) 1.3 Thou/mm3 (1.8-7.7); Neutrophils % (Auto) 53 % (37-80); Nucleated Red Blood Cell # 0.00 Thou/mm3 (0.00-0.00); Nucleated Red Blood Cell % 0 /100 WBC (0); Platelet Count 83 Thou/mm3 (140-440); RDW Standard Deviation 48.0 fL (36.4-46.3); Red Blood Count 3.50 Miln/mm3 (4.00-5.20); White Blood Count 2.4 Thou/mm3 (3.6-11.0)
[2025-07-20 09:09] LABS: Alanine Aminotransferase < 7 U/L (10-49); Albumin, Serum 3.9 gm/dL (3.4-4.8); Albumin/Globulin Ratio 1.3 (1.2-2.2); Alkaline Phosphatase 85 U/L (46-116); Anion Gap 10 (7-16); Aspartate Amino Transferase 18 U/L (0-34); BUN/Creatinine Ratio 16 Ratio (12-20); Bilirubin,Total 0.4 mg/dL (0.3-1.2); Blood Urea Nitrogen 37 mg/dL (9-23); Calcium 9.4 mg/dL (8.3-10.6); Calcium (Corrected) 9.5 mg/dL (8.5-10.1); Carbon Dioxide 25.1 mMol/L (20.0-31.0); Chloride 108 mMol/L (98-107); Creatinine (Component) 2.3 mg/dL (0.6-1.3); Globulin 2.9 gm/dL (2.3-3.5); Glucose 108 mg/dL (74-106); Osmolality,Calculated 294 (275-295); Potassium 5.2 mMol/L (3.4-5.1); Sodium 143 mMol/L (136-145); Total Protein 6.8 gm/dL (5.7-8.2); eGFR 22 See Note
== END | disposition home or self-care (01) ==
LOC: SCTO 07:22
PROVIDERS: PCP Internal Medicine; Referring Provider Internal Medicine Hematology & Oncology; Visit Provider Internal Medicine Hematology & Oncology
DX: D61.818 Other pancytopenia (principal)
CPT/HCPCS: 36415; 80053; 85025

== ENCOUNTER → 2025-08-03 | Outpatient (CLI) | payer MEDICARE, BC, SELFPAY ==
[2025-08-03 08:48] LABS: Basophils # (Auto) 0.0 Thou/mm3 (0.0-0.2); Basophils % (Auto) 0 % (0-2.5); Eosinophils # (Auto) 0.1 Thou/mm3 (0.0-0.5); Eosinophils % (Auto) 2 % (0-10); Hematocrit 31.0 % (36.0-46.0); Hemoglobin 10.1 g/dL (12.0-16.0); Immature Granulocytes Auto 0.00 Thou/mm3 (0.00-0.00); Lymphocytes # (Auto) 1.1 Thou/mm3 (1.0-4.8); Lymphocytes % (Auto) 38 % (10-50); Mean Corpuscular HGB Conc 32.6 g/dl (31.0-37.0); Mean Corpuscular Hemoglobin 29.6 pg (25.0-35.0); Mean Corpuscular Volume 91 fL (80-100); Monocytes # (Auto) 0.2 Thou/mm3 (0.0-0.8); Monocytes % (Auto) 7 % (0-12); Neutrophils # (Auto) 1.5 Thou/mm3 (1.8-7.7); Neutrophils % (Auto) 53 % (37-80); Nucleated Red Blood Cell # 0.00 Thou/mm3 (0.00-0.00); Nucleated Red Blood Cell % 0 /100 WBC (0); Platelet Count 84 Thou/mm3 (140-440); RDW Standard Deviation 48.4 fL (36.4-46.3); Red Blood Count 3.41 Miln/mm3 (4.00-5.20); White Blood Count 2.8 Thou/mm3 (3.6-11.0)
== END | disposition home or self-care (01) ==
LOC: COPL 07:17
PROVIDERS: PCP Internal Medicine; Referring Provider Internal Medicine Hematology & Oncology; Visit Provider Internal Medicine Hematology & Oncology
DX: D61.818 Other pancytopenia (principal)
CPT/HCPCS: 36415; 85025

== ENCOUNTER → 2025-08-17 | Outpatient (CLI) | payer MEDICARE, BC, SELFPAY ==
[2025-08-17 10:25] LABS: Basophils # (Auto) 0.0 Thou/mm3 (0.0-0.2); Basophils % (Auto) 0 % (0-2.5); Eosinophils # (Auto) 0.1 Thou/mm3 (0.0-0.5); Eosinophils % (Auto) 2 % (0-10); Hematocrit 30.8 % (36.0-46.0); Hemoglobin 10.2 g/dL (12.0-16.0); Immature Granulocytes Auto 0.01 Thou/mm3 (0.00-0.00); Lymphocytes # (Auto) 1.2 Thou/mm3 (1.0-4.8); Lymphocytes % (Auto) 41 % (10-50); Mean Corpuscular HGB Conc 33.1 g/dl (31.0-37.0); Mean Corpuscular Hemoglobin 30.0 pg (25.0-35.0); Mean Corpuscular Volume 91 fL (80-100); Monocytes # (Auto) 0.2 Thou/mm3 (0.0-0.8); Monocytes % (Auto) 6 % (0-12); Neutrophils # (Auto) 1.5 Thou/mm3 (1.8-7.7); Neutrophils % (Auto) 51 % (37-80); Nucleated Red Blood Cell # 0.00 Thou/mm3 (0.00-0.00); Nucleated Red Blood Cell % 0 /100 WBC (0); Platelet Count 82 Thou/mm3 (140-440); RDW Standard Deviation 48.7 fL (36.4-46.3); Red Blood Count 3.40 Miln/mm3 (4.00-5.20); White Blood Count 2.9 Thou/mm3 (3.6-11.0)
[2025-08-17 10:40] LABS: Alanine Aminotransferase 10 U/L (10-49); Albumin, Serum 4.3 gm/dL (3.4-4.8); Albumin/Globulin Ratio 1.3 (1.2-2.2); Alkaline Phosphatase 80 U/L (46-116); Anion Gap 10 (7-16); Aspartate Amino Transferase 19 U/L (0-34); BUN/Creatinine Ratio 16 Ratio (12-20); Bilirubin,Total 0.4 mg/dL (0.3-1.2); Blood Urea Nitrogen 45 mg/dL (9-23); Calcium 9.5 mg/dL (8.3-10.6); Calcium (Corrected) 9.5 mg/dL (8.5-10.1); Carbon Dioxide 24.8 mMol/L (20.0-31.0); Chloride 109 mMol/L (98-107); Creatinine (Component) 2.8 mg/dL (0.6-1.3); Globulin 3.2 gm/dL (2.3-3.5); Glucose 103 mg/dL (74-106); Osmolality,Calculated 298 (275-295); Potassium 4.8 mMol/L (3.4-5.1); Sodium 144 mMol/L (136-145); Total Protein 7.5 gm/dL (5.7-8.2); eGFR 17 See Note
== END | disposition home or self-care (01) ==
LOC: COPL 09:06
PROVIDERS: PCP Internal Medicine; Referring Provider Internal Medicine Hematology & Oncology; Visit Provider Internal Medicine Hematology & Oncology
DX: D61.818 Other pancytopenia (principal)
CPT/HCPCS: 36415; 80053; 85025

== ENCOUNTER 2025-08-24 13:45 | Outpatient (RCR) | payer MEDICARE, BC, SELFPAY ==
--- NOTE | 2025-09-06 00:53 | CTCFLWUP_ITS ---
Patient: RACHELLE JOHNSON : 1950 Page 5 of 7 FOLLOW UP NOTE DATE OF SERVICE: 08/24/2025 NAME: RACHELLE JOHNSON ACCOUNT: [id number] : 1950 AGE: 75 INTERVAL HISTORY: 03/04/2025 Medications and Supplements - Tacrolimus 1 mg - Memantine - For memory loss - Ozempic - For blood sugar control - Side effect: low blood pressure - Propranolol - Furosemide - Erythropoietin injection - For increasing white cell count - Fluconazole Review of Systems General: Positive for fatigue, hair loss. Cardiovascular: Positive for low blood pressure. Objective: Vital Signs - Blood Pressure: 94/60 mmHg Laboratory, Imaging, and Diagnostic Test Results - Bone marrow biopsy: - Blast: 1% - Genetic test: 5q deletion - Previous results: - Hemoglobin: Low - White blood cell count: Low - Erythropoietin level: Ordered (results pending) ONCOLOGY HISTORY:?CloneBlock Oncology Hx? 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 Currently on Neupogen (zarixio) 300 mcg subcu once a week. Chronic renal insufficiency previously on Procrit 10,000 units subcu once a week Status post liver transplant in November 2019 for cirrhosis of the liver caused by fatty infiltration. 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 Johnson is here at [facility]. Patient is accompanied by her . Currently she is on weekly Neupogen (filgrastim) injections. She gets CBC every other week. Ambulating well without any help. Has good appetite and good energy levels. Patient denies headache dizziness vision changes nausea. Patient following up with transplant center every 3 months, she is also following up with nephrology, Dr. Rodriguez, [facility] every 6 months. HISTORY: Rachelle Johnson is a 75-year-old ENG speaking female with longstanding history of anemia at least for the last 10 years, status post multiple packed cell transfusions at least twice a year for last 10 years is referred to hematology clinic to evaluate the cause for her chronic anemia. Her last blood transfusion was about 2 weeks ago. Labs drawn on 06/27/2020 showed her hemoglobin to be 6.7 with an MCV of 98, WBC 2.5 with an ANC of 1.8, and platelet count of 67,000. Patient was sent to emergency room where she received 2 units of packed cell transfusion. Labs drawn yesterday showed her hemoglobin to be 10.2. 10/07/2019: Colonoscopy? November 2019: Patient had liver transplant at [facility] for cirrhosis of the liver thought to be secondary to fatty infiltration. 03/25/2020: Upper GI endoscopy? May 2020: Patient had aortic valve replacement with pig valve at [facility]. Chronic renal insufficiency with a creatinine of 1.81 and EGFR of 28. Currently patient is taking Procrit 10,000 units subcu once a week at home. 06/27/2020: WBC 2.5, ANC 1.8, hemoglobin 6.7, MCV 98, platelets 67,000. Creatinine 1.7, EGFR 32. Patient had 2 units of packed cell transfusion. 07/11/2020: Hemoglobin 10.2, MCV 94, WBC 2.3, ANC 1.4, platelets 64,000. 07/14/2020: WBC 2.0, ANC 1.3, hemoglobin 10.4, MCV 94, platelets 62,000, creatinine 1.73, EGFR 29, iron saturation 48%, ferritin 45, B12 558, folate 18.3, TSH 1.1, Stefanie test negative. Patient stopped Procrit on the advice of Dr. Rodriguez, director emergency from [facility]. 08/02/2020: WBC 2.1, ANC 1.2, hemoglobin 9.4, MCV 92, platelets 47,000 09/13/2020: WBC 2.0, ANC 1.1, hemoglobin 9.2, platelets 78,000. 10/18/2020: Bone marrow biopsy and aspiration? 10/24/2020: WBC 1.8, ANC 1.1, hemoglobin 10, MCV 83, platelets 59,000, iron saturation 14%, ferritin 17, vitamin B12 is 596, folic acid more than 20. Erythropoietin 38.5 (2.6?18.5) currently patient is on Procrit 10,000 units subcu once a week. 11/14/2020: Tacrolimus level 8.9 (2.0?20.0), WBC 1.4, ANC 0.8, hemoglobin 9.8, MCV 83, platelets 57,000. 06/21/2021: WBC 1.8, ANC 1.0, hemoglobin 10.8, MCV 93, platelets 55,000. 08/22/2021: WBC 2.1, ANC 1.3, hemoglobin 11.3, MCV 93, platelets 54,000. 08/31/2021: Patient is started on weekly Neupogen 300 mcg subcu. 10/24/2021: WBC 2.4, ANC 1.3, hemoglobin 11.2, MCV 91, platelets 87,000. 12/25/2021: WBC 2.8, ANC 1.8, hemoglobin 11.1, MCV 91, platelets 70,000. 10/29/2022: WBC 2.6, ANC 1.5, hemoglobin 10.8, MCV 90, platelets 80,000. 10/24/2023: WBC 9.2, ANC 7.8, hemoglobin 10.1, MCV 93, platelets 84,000 01/07/2024: WBC 2.5, ANC 1.6, hemoglobin 9.2, MCV 89, platelets 75,000 01/23/2024: WBC 7.7, ANC 6.4, hemoglobin 9.6, MCV 90, platelets 85,000 02/11/2024: WBC 1.9, ANC 1.1, hemoglobin 9.6, MCV 88, platelets 74,000 02/24/2024: WBC 2.3, ANC 1.4, hemoglobin 10.4, MCV 89, platelets 86,000 04/08/2024: WBC 1.8, ANC 0.9, hemoglobin 9.9, MCV 88, platelets 76,000 04/28/2024: WBC 2.6, ANC 1.7, hemoglobin 9.8, MCV 89, platelets 80,000 05/26/2024: WBC 3.2, ANC 2.0, hemoglobin 9.8, MCV 89, platelets 127,000 06/17/2024: WBC 1.3, ANC 0.4, hemoglobin 9.8, MCV 98, platelets 78,000 07/07/2024: WBC 2.0, ANC 1.2, hemoglobin 9.6, MCV 91, platelets 91,000 07/21/2024: WBC 2.3, ANC 1.4, hemoglobin 10.1, MCV 89, platelets 87,000 08/21/2024: WBC 6.2, ANC 5.2, hemoglobin 10.2, MCV 90, platelets 83,000 09/08/2024: WBC 2.3, ANC 12.3, hemoglobin 10.3, MCV 90, platelets 94,000 OTHER MEDICAL HISTORY/CONDITIONS: Anemia Chronic kidney disease follows up with Dr. 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 buPROPion HCl - 100 mg 1 tab Daily 2. Calcium 600 - 600 mg Daily 3. escitalopram oxalate - 20 mg 1 tab Daily 4. fluconazole - 100 mg 1 tab Daily 5. gabapentin - 300 mg 1 Capsule Daily 6. Lasix - 40 mg 1 tab Twice a Day 7. melatonin - 5 mg 2 tab Every day before sleep 8. mycophenolate mofetiL - 250 mg 1 Capsule Twice a Day 9. Nephro-Saloni - 0.8 mg 1 tab Daily 10. ondansetron HCl - 4 mg 1 tab As needed 11. Ozempic - 1 mg/dose (2 mg/1.5 mL) Weekly 12. pantoprazole - 40 mg 1 tab Daily 13. QUEtiapine - 25 mg 0.5 tab Every day before sleep 14. tacrolimus - 1 mg 2 Capsule Twice a Day 15. ursodiol - 300 mg 1 Capsule Three times a day 16. Vitamin B-1 - 100 mg 1 tab Daily?Palabra Meds? Medications Last Reconciled by Rachelle Patel MD on 08/24/2025 ALLERGIES: No Known Drug Allergies REVIEW OF SYSTEMS: A complete 14-point review of systems was performed and is negative except as noted in interval history. PHYSICAL EXAMINATION:?CloneBlock PE? VITAL SIGNS: Temperature?98.4, B/P?119/58, Oxygen?Saturation?97% PAIN: 0 - No pain ECOG Performance Status: 0 - Asymptomatic and fully active GENERAL APPEARANCE: Appears well, in no apparent distress, appropriately interactive. HEENT: Normocephalic, no temporal wasting, normal conjunctiva, no scleral icterus, normal hearing, lips without lesions, neck normal range of motion, no neck lymphadenopathy, erythema to back of throat, no white exudate CARDIOVASCULAR: Normal heart sounds PULMONARY: Normal respiratory effort, no respiratory distress or use of accessory muscles, speaking in full sentences, no tachypnea. EXTREMITIES: No pedal edema or cyanosis. SKIN: Normal skin appearance, no rash, no bruising. NEUROLOGIC: Alert and oriented x4. PSHYCHIATRIC: Appropriate affect, mood normal, behavior normal, intact thought and speech. LABORATORY DATA: I have personally reviewed and interpreted each of the patient?s relevant lab tests, abnormal findings are below: Date 08/03/25 08/17/25 08/31/25 ??WHITE?BLOOD?COUNT?(Thou/mm3) 2.8?L 2.9?L 2.4?L ??RED?BLOOD?COUNT?(Miln/mm3) 3.41?L 3.40?L 3.55?L ??HEMOGLOBIN?(gm/dl) 10.1?L 10.2?L 10.7?L ??HEMATOCRIT?(%) 31.0?L 30.8?L 31.6?L ??PLATELET?COUNT?(Thou/mm3) 84?L 82?L 83?L ??NEUTROPHILS?%,?AUTO?(%) 53 51 49 ??LYMPH?%,?AUTO?(%) 38 41 42 ??NEUTROPHILS,?AUTO?(Thou/mm3) 1.5?L 1.5?L 1.2?L ??GLUCOSE,RANDOM?(mg/dL) ? 103 ? ??BLOOD?UREA?NITROGEN?(mg/dL) ? 45?H ? ??CREATININE?(mg/dL) ? 2.80?H ? ??SODIUM?(mmol/L) ? 144 ? ??POTASSIUM?(mmol/L) ? 4.8 ? ??CHLORIDE?(mmol/L) ? 109?H ? ??CrCl?(CandG)?(ml/min) ? 15.08 ? ??AST/SGOT?(Unit/L) ? 19 ? ??ALT/SGPT?(Unit/L) ? 10 ? ??ALKALINE?PHOSPHATASE?(Unit/L) ? 80 ? ??BILIRUBIN,?TOTAL?(mg/dL) ? 0.4 ? ??PROTEIN?TOTAL?(gm/dl) ? 7.5 ? ??ALBUMIN,?SERUM?(gm/dl) ? 4.3 ? ??GLOBULIN?(gm/dl) ? 3.2 ? ??ALBUMIN/GLOBULIN?RATIO ? 1.3 ? ??CALCIUM,?SERUM?(mg/dL) ? 9.5 ? ??CALCIUM?SERUM?(CORRECTED)?(mg/dL) ? 9.5 ? 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 Currently on Neupogen (zarixio) 300 mcg subcu once a week. Tacrolimus 2 mg p.o. twice daily. Tacrolimus which is known to cause pancytopenia in liver transplantation patients. In patients who are taking tacrolimus for liver transplantation the incidence of anemia is 47%, thrombocytopenia 24%. Status post liver transplant in November 2019 for cirrhosis of the liver caused by fatty infiltration. 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 Bone marrow biopsy and aspiration done on October 18, 2020 showed normocellular bone marrow with cutter tender trilineage hematopoiesis, normal karyotype as well as without any evidence for FISH MDS cytogenetic harris ges. Currently Ms. Johnson is a weekly Neupogen (filgrastim) 300 mcg subcu once a weekPatient's bone marrow biopsy revealed decreased cell production without myelodysplasia. 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 The blast percentage is only 1%, ruling out leukemia (which requires >5% blasts in women). This condition has likely been present for some time, causing persistently low cell counts. The patient's MDS is classified as low-risk due to the specific 5q deletion mutation. Without treatment, cell counts may continue to decline, potentially progressing to leukemia. No revalmid or chemo per consult recs Started on Procrit Liver Cirrhosis status post liver transplant Assessment: Patient has a history of liver cirrhosis and underwent orthotopic liver transplant in 2019 for non- alcoholic steatohepatitis (STROUD). Currently on tacrolimus 1 mg for immunosuppression. The patient's blood work from 2013 and 2015 shows stability. There is concern that tacrolimus may be contributing to the development of MDS due to its immunosuppressive effects. - Continue tacrolimus 1 mg as prescribed by transplant team Uncontrolled Diabetes Mellitus Assessment: Patient has uncontrolled diabetes mellitus, currently managed with Ozempic (semaglutide). This medication may be contributing to the patient's low blood pressure (94/60) and fatigue. Plan: - Consult with primary care physician (Dr. Tate Hayes) regarding diabetes management - Recommend consideration of alternative diabetes medications (e.g., Jardiance, metformin) to avoid hypotension - Monitor blood pressure and adjust medications as needed Hypotension Assessment: Patient prese nts with low blood pressure (94/60), likely due to a combination of medications including Ozempic, propranolol, and furosemide. The propranolol may have been prescribed for portal hypertension management, but its necessity is unclear. Plan: - Consult with primary care physician and transplant team regarding medication adjustments - Consider discontinuation of furosemide if no signs of fluid overload - Reassess need for propranolol with transplant team - Monitor blood pressure regularly Memory Loss Assessment: Patient is currently taking memantine for memory loss. No further details provided about the severity or impact of memory issues. Plan: - Continue memantine as prescribed - Reassess cognitive function at follow-up visits Nutritional Deficiencies Assessment: Patient reports significant hair loss, which may be related to nutritional deficiencies secondary to medication side effects or underlying medical conditions. Plan: - Order comprehensive vitamin panel including B12 and folate levels - Supplement any deficient vitamins as indicated by lab results - Reassess hair loss and fatigue at follow-up visits ORDERS: Order # Description [id number] Reticulocyte Count + Iron Panel + Ferritin + Vitamin B-12 + Folic Acid; Serum RETURN TO CLINIC: I reviewed the diagnosis, prognosis, and recommended treatment/procedure options with the patient (and/or their legal insurance verification representative), including the potential benefits, risks, side effects and alternative therapies. We also discussed the option of no treatment and the possibility of clinical trial participation, if applicable. All questions were addressed, and they demonstrated understanding. They provided informed consent to proceed with the proposed plan of care. BILLING AND COMPLIANCE: I reviewed external records from providers outside my specialty as summarized above. I spent a total of 50 minutes on this patient?s care on the day of their visit excluding time spent related to any billed procedures. This time includes time spent with the patient as well as time spent documenting in the medical record, reviewing patients records and tests, obtaining history, placing orders, communicating with other healthcare professionals, counseling the patient, family or caregiver, and/or care coordination for the diagnoses above. Electronically Signed by: Cliff Sibley MD T: 12:50 AM CC: Ariana?Rajeev,? PCP: Valeriano Hilliard Referring: Valeriano Hilliard This document was completed utilizing speech recognition software. Grammatical errors, random word insertions, pronoun errors, and incomplete sentences are an occasional consequence of this system due to software limitations, ambient noise, and hardware issues. Any formal questions or concerns about the content, text or information contained within the body of this dictation should be directly addressed to the provider for clarification.
== END 2025-09-10 23:59 | disposition home or self-care (01) ==
LOC: SCTC 13:45
PROVIDERS: PCP Internal Medicine; Referring Provider Internal Medicine; Visit Provider Internal Medicine Hematology & Oncology
DX: D75.9 Disease of blood and blood-forming organs, unspecified (principal); D61.818 Other pancytopenia; Z94.4 Liver transplant status; E11.22 Type 2 diabetes mellitus with diabetic chronic kidney disease; N18.9 Chronic kidney disease, unspecified; Z79.85 Long-term (current) use of injectable non-insulin antidiabetic drugs; R41.3 Other amnesia
CPT/HCPCS: 99212; G0463

== ENCOUNTER → 2025-08-31 | Outpatient (CLI) | payer MEDICARE, BC, SELFPAY ==
[2025-08-31 08:38] LABS: Basophils # (Auto) 0.0 Thou/mm3 (0.0-0.2); Basophils % (Auto) 0 % (0-2.5); Eosinophils # (Auto) 0.0 Thou/mm3 (0.0-0.5); Eosinophils % (Auto) 2 % (0-10); Hematocrit 31.6 % (36.0-46.0); Hemoglobin 10.7 g/dL (12.0-16.0); Immature Granulocytes Auto 0.00 Thou/mm3 (0.00-0.00); Lymphocytes # (Auto) 1.0 Thou/mm3 (1.0-4.8); Lymphocytes % (Auto) 42 % (10-50); Mean Corpuscular HGB Conc 33.9 g/dl (31.0-37.0); Mean Corpuscular Hemoglobin 30.1 pg (25.0-35.0); Mean Corpuscular Volume 89 fL (80-100); Monocytes # (Auto) 0.2 Thou/mm3 (0.0-0.8); Monocytes % (Auto) 7 % (0-12); Neutrophils # (Auto) 1.2 Thou/mm3 (1.8-7.7); Neutrophils % (Auto) 49 % (37-80); Nucleated Red Blood Cell # 0.00 Thou/mm3 (0.00-0.00); Nucleated Red Blood Cell % 0 /100 WBC (0); Platelet Count 83 Thou/mm3 (140-440); RDW Standard Deviation 46.5 fL (36.4-46.3); Red Blood Count 3.55 Miln/mm3 (4.00-5.20); White Blood Count 2.4 Thou/mm3 (3.6-11.0)
== END | disposition home or self-care (01) ==
LOC: SCTO 07:27
PROVIDERS: PCP Internal Medicine; Referring Provider Internal Medicine Hematology & Oncology; Visit Provider Internal Medicine Hematology & Oncology
DX: D61.818 Other pancytopenia (principal)
CPT/HCPCS: 36415; 85025

== ENCOUNTER → 2025-09-14 | Outpatient (CLI) | payer MEDICARE, BC, SELFPAY ==
[2025-09-14 08:40] LABS: Basophils # (Auto) 0.0 Thou/mm3 (0.0-0.2); Basophils % (Auto) 0 % (0-2.5); Eosinophils # (Auto) 0.1 Thou/mm3 (0.0-0.5); Eosinophils % (Auto) 3 % (0-10); Hematocrit 33.1 % (36.0-46.0); Hemoglobin 11.0 g/dL (12.0-16.0); Immature Granulocytes Auto 0.01 Thou/mm3 (0.00-0.00); Lymphocytes # (Auto) 1.1 Thou/mm3 (1.0-4.8); Lymphocytes % (Auto) 40 % (10-50); Mean Corpuscular HGB Conc 33.2 g/dl (31.0-37.0); Mean Corpuscular Hemoglobin 29.6 pg (25.0-35.0); Mean Corpuscular Volume 89 fL (80-100); Monocytes # (Auto) 0.2 Thou/mm3 (0.0-0.8); Monocytes % (Auto) 6 % (0-12); Neutrophils # (Auto) 1.4 Thou/mm3 (1.8-7.7); Neutrophils % (Auto) 50 % (37-80); Nucleated Red Blood Cell # 0.00 Thou/mm3 (0.00-0.00); Nucleated Red Blood Cell % 0 /100 WBC (0); Platelet Count 91 Thou/mm3 (140-440); RDW Standard Deviation 45.1 fL (36.4-46.3); Red Blood Count 3.71 Miln/mm3 (4.00-5.20); White Blood Count 2.7 Thou/mm3 (3.6-11.0)
[2025-09-14 09:11] LABS: Alanine Aminotransferase 9 U/L (10-49); Albumin, Serum 4.2 gm/dL (3.4-4.8); Albumin/Globulin Ratio 1.6 (1.2-2.2); Alkaline Phosphatase 85 U/L (46-116); Anion Gap 9 (7-16); Aspartate Amino Transferase 20 U/L (0-34); BUN/Creatinine Ratio 11 Ratio (12-20); Bilirubin,Total 0.3 mg/dL (0.3-1.2); Blood Urea Nitrogen 22 mg/dL (9-23); Calcium 9.5 mg/dL (8.3-10.6); Calcium (Corrected) 9.5 mg/dL (8.5-10.1); Carbon Dioxide 28.9 mMol/L (20.0-31.0); Chloride 108 mMol/L (98-107); Creatinine (Component) 2.0 mg/dL (0.6-1.3); Globulin 2.7 gm/dL (2.3-3.5); Glucose 115 mg/dL (74-106); Osmolality,Calculated 294 (275-295); Potassium 4.2 mMol/L (3.4-5.1); Sodium 146 mMol/L (136-145); Total Protein 6.9 gm/dL (5.7-8.2); eGFR 25 See Note
== END | disposition home or self-care (01) ==
LOC: SCTO 07:44
PROVIDERS: PCP Internal Medicine; Referring Provider Internal Medicine Hematology & Oncology; Visit Provider Internal Medicine Hematology & Oncology
DX: D61.818 Other pancytopenia (principal)
CPT/HCPCS: 36415; 80053; 85025

== ENCOUNTER → 2025-09-28 | Outpatient (CLI) | payer MEDICARE, BC, SELFPAY ==
[2025-09-28 09:24] LABS: Basophils # (Auto) 0.0 Thou/mm3 (0.0-0.2); Basophils % (Auto) 0 % (0-2.5); Eosinophils # (Auto) 0.1 Thou/mm3 (0.0-0.5); Eosinophils % (Auto) 3 % (0-10); Hematocrit 34.7 % (36.0-46.0); Hemoglobin 11.3 g/dL (12.0-16.0); Immature Granulocytes Auto 0.01 Thou/mm3 (0.00-0.00); Lymphocytes # (Auto) 1.2 Thou/mm3 (1.0-4.8); Lymphocytes % (Auto) 33 % (10-50); Mean Corpuscular HGB Conc 32.6 g/dl (31.0-37.0); Mean Corpuscular Hemoglobin 29.7 pg (25.0-35.0); Mean Corpuscular Volume 91 fL (80-100); Monocytes # (Auto) 0.3 Thou/mm3 (0.0-0.8); Monocytes % (Auto) 7 % (0-12); Neutrophils # (Auto) 2.0 Thou/mm3 (1.8-7.7); Neutrophils % (Auto) 56 % (37-80); Nucleated Red Blood Cell # 0.00 Thou/mm3 (0.00-0.00); Nucleated Red Blood Cell % 0 /100 WBC (0); Platelet Count 85 Thou/mm3 (140-440); RDW Standard Deviation 46.7 fL (36.4-46.3); Red Blood Count 3.81 Miln/mm3 (4.00-5.20); White Blood Count 3.5 Thou/mm3 (3.6-11.0)
[2025-09-28 09:31] LABS: Alanine Aminotransferase 10 U/L (10-49); Albumin, Serum 4.2 gm/dL (3.4-4.8); Albumin/Globulin Ratio 1.4 (1.2-2.2); Alkaline Phosphatase 87 U/L (46-116); Anion Gap 8 (7-16); Aspartate Amino Transferase < 8 U/L (0-34); BUN/Creatinine Ratio 12 Ratio (12-20); Bilirubin,Total 0.4 mg/dL (0.3-1.2); Blood Urea Nitrogen 26 mg/dL (9-23); Calcium 9.7 mg/dL (8.3-10.6); Calcium (Corrected) 9.7 mg/dL (8.5-10.1); Carbon Dioxide 32.2 mMol/L (20.0-31.0); Chloride 107 mMol/L (98-107); Creatinine (Component) 2.2 mg/dL (0.6-1.3); Globulin 3.0 gm/dL (2.3-3.5); Glucose 94 mg/dL (74-106); Osmolality,Calculated 297 (275-295); Potassium 3.6 mMol/L (3.4-5.1); Sodium 147 mMol/L (136-145); Total Protein 7.2 gm/dL (5.7-8.2); eGFR 23 See Note
== END | disposition home or self-care (01) ==
PROVIDERS: PCP Internal Medicine; Referring Provider Internal Medicine; Visit Provider Internal Medicine
DX: D61.818 Other pancytopenia (principal)
CPT/HCPCS: 36415; 80053; 85025

== ENCOUNTER → 2025-10-12 | Outpatient (CLI) | payer MEDICARE, BC, SELFPAY ==
[2025-10-12 08:34] LABS: Basophils # (Auto) 0.0 Thou/mm3 (0.0-0.2); Basophils % (Auto) 0 % (0-2.5); Eosinophils # (Auto) 0.1 Thou/mm3 (0.0-0.5); Eosinophils % (Auto) 2 % (0-10); Hematocrit 33.6 % (36.0-46.0); Hemoglobin 11.3 g/dL (12.0-16.0); Immature Granulocytes Auto 0.02 Thou/mm3 (0.00-0.00); Lymphocytes # (Auto) 0.9 Thou/mm3 (1.0-4.8); Lymphocytes % (Auto) 42 % (10-50); Mean Corpuscular HGB Conc 33.6 g/dl (31.0-37.0); Mean Corpuscular Hemoglobin 29.6 pg (25.0-35.0); Mean Corpuscular Volume 88 fL (80-100); Monocytes # (Auto) 0.1 Thou/mm3 (0.0-0.8); Monocytes % (Auto) 6 % (0-12); Neutrophils # (Auto) 1.1 Thou/mm3 (1.8-7.7); Neutrophils % (Auto) 49 % (37-80); Nucleated Red Blood Cell # 0.00 Thou/mm3 (0.00-0.00); Nucleated Red Blood Cell % 0 /100 WBC (0); Platelet Count 91 Thou/mm3 (140-440); RDW Standard Deviation 44.6 fL (36.4-46.3); Red Blood Count 3.82 Miln/mm3 (4.00-5.20); White Blood Count 2.2 Thou/mm3 (3.6-11.0)
[2025-10-12 09:09] LABS: Alanine Aminotransferase 12 U/L (10-49); Albumin, Serum 4.4 gm/dL (3.4-4.8); Alkaline Phosphatase 87 U/L (46-116); Anion Gap 10 (7-16); Aspartate Amino Transferase 23 U/L (0-34); BUN/Creatinine Ratio 11 Ratio (12-20); Bilirubin,Total 0.3 mg/dL (0.3-1.2); Blood Urea Nitrogen 20 mg/dL (9-23); Calcium 9.6 mg/dL (8.3-10.6); Calcium (Corrected) 9.6 mg/dL (8.5-10.1); Carbon Dioxide 32.2 mMol/L (20.0-31.0); Chloride 106 mMol/L (98-107); Creatinine (Component) 1.9 mg/dL (0.6-1.3); Glucose 98 mg/dL (74-106); Osmolality,Calculated 296 (275-295); Potassium 3.4 mMol/L (3.4-5.1); Sodium 148 mMol/L (136-145); eGFR 27 See Note
[2025-10-12 13:03] LABS: Albumin/Globulin Ratio 1.3 (1.2-2.2); Globulin 3.3 gm/dL (2.3-3.5); Total Protein 7.7 gm/dL (5.7-8.2)
== END | disposition home or self-care (01) ==
LOC: COPL 07:24 → SCTO 07:32
PROVIDERS: PCP Internal Medicine; Referring Provider Internal Medicine Hematology & Oncology; Visit Provider Internal Medicine Hematology & Oncology
DX: D61.818 Other pancytopenia (principal)
CPT/HCPCS: 36415; 80053; 85025

== ENCOUNTER → 2025-10-20 | Outpatient (CLI) | payer MEDICARE, BC, SELFPAY ==
[2025-10-20 10:23] LABS: Basophils # (Auto) 0.0 Thou/mm3 (0.0-0.2); Basophils % (Auto) 0 % (0-2.5); Eosinophils # (Auto) 0.0 Thou/mm3 (0.0-0.5); Eosinophils % (Auto) 1 % (0-10); Hematocrit 37.4 % (36.0-46.0); Hemoglobin 12.3 g/dL (12.0-16.0); Immature Granulocytes Auto 0.02 Thou/mm3 (0.00-0.00); Lymphocytes # (Auto) 1.0 Thou/mm3 (1.0-4.8); Lymphocytes % (Auto) 34 % (10-50); Mean Corpuscular HGB Conc 32.9 g/dl (31.0-37.0); Mean Corpuscular Hemoglobin 29.0 pg (25.0-35.0); Mean Corpuscular Volume 88 fL (80-100); Monocytes # (Auto) 0.2 Thou/mm3 (0.0-0.8); Monocytes % (Auto) 7 % (0-12); Neutrophils # (Auto) 1.7 Thou/mm3 (1.8-7.7); Neutrophils % (Auto) 57 % (37-80); Nucleated Red Blood Cell # 0.00 Thou/mm3 (0.00-0.00); Nucleated Red Blood Cell % 0 /100 WBC (0); Platelet Count 99 Thou/mm3 (140-440); RDW Standard Deviation 44.0 fL (36.4-46.3); Red Blood Count 4.24 Miln/mm3 (4.00-5.20); White Blood Count 2.9 Thou/mm3 (3.6-11.0)
[2025-10-20 10:43] LABS: Glucose Estimated Average 94 mg/dL (80-131); Hemoglobin A1C 4.9 % Hgb (4.8-6.0)
[2025-10-20 11:49] LABS: Collection Type, Urine Clean Catch; Squamous Epithelial Cell,Urine 0 /hpf (0-5)
[2025-10-20 12:16] LABS: Bacteria,Urine Rare; Bilirubin,Urine Negative (Negative); Blood,Urine 1+ (Negative); Clarity,Urine Clear (Clear/Hazy); Color,Urine Yellow (Lt Yel-Yel); Glucose, Urine Negative (Negative); Hyaline Casts,Urine 1 /hpf (0-1); Ketones,Urine Negative (Negative); Leukocyte Esterase,Urine Negative (Negative); Nitrite,Urine Negative (Negative); PH,Urine 6.5 (5.0-7.0); Protein,Urine 1+ (Neg - Trace); RBC,Urine 13 /hpf (0-3); Specific Gravity,Urine 1.017 (1.001-1.035); Urobilinogen,Urine Negative mg/dL (0.0-1.0); WBC,Urine 5 /hpf (0-5)
[2025-10-20 12:23] LABS: Alanine Aminotransferase 10 U/L (10-49); Albumin, Serum 4.4 gm/dL (3.4-4.8); Albumin/Globulin Ratio 1.3 (1.2-2.2); Alkaline Phosphatase 90 U/L (46-116); Anion Gap 12 (7-16); Aspartate Amino Transferase 22 U/L (0-34); BUN/Creatinine Ratio 9 Ratio (12-20); Bilirubin,Total 0.5 mg/dL (0.3-1.2); Blood Urea Nitrogen 17 mg/dL (9-23); Calcium 9.2 mg/dL (8.3-10.6); Calcium (Corrected) 9.2 mg/dL (8.5-10.1); Carbon Dioxide 34.5 mMol/L (20.0-31.0); Cardiac Risk Estimate 3.8 RATIO (3.7-5.6); Chloride 103 mMol/L (98-107); Cholesterol 166 mg/dL (132-200); Creatinine (Component) 2.0 mg/dL (0.6-1.3); Globulin 3.4 gm/dL (2.3-3.5); Glucose 100 mg/dL (74-106); HDL Cholesterol 44 mg/dL (40-60); LDL Cholesterol,Calculated 85 mg/dL (0-130); Osmolality,Calculated 297 (275-295); Potassium 2.9 mMol/L (3.4-5.1); Sodium 149 mMol/L (136-145); Total Protein 7.8 gm/dL (5.7-8.2); Triglycerides 183 mg/dL (30-150); eGFR 25 See Note
== END | disposition home or self-care (01) ==
LOC: COPL 09:14
PROVIDERS: PCP Internal Medicine; Referring Provider Internal Medicine; Visit Provider Internal Medicine
DX: E11.9 Type 2 diabetes mellitus without complications (principal); I10 Essential (primary) hypertension; E78.5 Hyperlipidemia, unspecified
CPT/HCPCS: 36415; 80053; 80061; 81001; 83036; 85025

== ENCOUNTER → 2025-10-26 | Outpatient (CLI) | payer MEDICARE, BC, SELFPAY ==
[2025-10-26 08:35] LABS: Basophils # (Auto) 0.0 Thou/mm3 (0.0-0.2); Basophils % (Auto) 0 % (0-2.5); Eosinophils # (Auto) 0.1 Thou/mm3 (0.0-0.5); Eosinophils % (Auto) 2 % (0-10); Hematocrit 36.6 % (36.0-46.0); Hemoglobin 12.1 g/dL (12.0-16.0); Immature Granulocytes Auto 0.01 Thou/mm3 (0.00-0.00); Lymphocytes # (Auto) 1.1 Thou/mm3 (1.0-4.8); Lymphocytes % (Auto) 42 % (10-50); Mean Corpuscular HGB Conc 33.1 g/dl (31.0-37.0); Mean Corpuscular Hemoglobin 29.0 pg (25.0-35.0); Mean Corpuscular Volume 88 fL (80-100); Monocytes # (Auto) 0.2 Thou/mm3 (0.0-0.8); Monocytes % (Auto) 7 % (0-12); Neutrophils # (Auto) 1.3 Thou/mm3 (1.8-7.7); Neutrophils % (Auto) 49 % (37-80); Nucleated Red Blood Cell # 0.00 Thou/mm3 (0.00-0.00); Nucleated Red Blood Cell % 0 /100 WBC (0); Platelet Count 94 Thou/mm3 (140-440); RDW Standard Deviation 43.8 fL (36.4-46.3); Red Blood Count 4.17 Miln/mm3 (4.00-5.20); White Blood Count 2.6 Thou/mm3 (3.6-11.0)
[2025-10-26 08:44] LABS: Alanine Aminotransferase 10 U/L (10-49); Albumin, Serum 4.4 gm/dL (3.4-4.8); Albumin/Globulin Ratio 1.3 (1.2-2.2); Alkaline Phosphatase 85 U/L (46-116); Anion Gap 9 (7-16); Aspartate Amino Transferase 23 U/L (0-34); BUN/Creatinine Ratio 12 Ratio (12-20); Bilirubin,Total 0.5 mg/dL (0.3-1.2); Blood Urea Nitrogen 22 mg/dL (9-23); Calcium 9.5 mg/dL (8.3-10.6); Calcium (Corrected) 9.5 mg/dL (8.5-10.1); Carbon Dioxide 34.4 mMol/L (20.0-31.0); Chloride 105 mMol/L (98-107); Creatinine (Component) 1.8 mg/dL (0.6-1.3); Globulin 3.4 gm/dL (2.3-3.5); Glucose 101 mg/dL (74-106); Osmolality,Calculated 297 (275-295); Potassium 3.4 mMol/L (3.4-5.1); Sodium 148 mMol/L (136-145); Total Protein 7.8 gm/dL (5.7-8.2); eGFR 29 See Note
== END | disposition home or self-care (01) ==
LOC: COPL 07:16
PROVIDERS: PCP Internal Medicine; Referring Provider Internal Medicine Hematology & Oncology; Visit Provider Internal Medicine Hematology & Oncology
DX: D61.818 Other pancytopenia (principal)
CPT/HCPCS: 36415; 80053; 85025

== ENCOUNTER 2025-10-27 13:38 | Outpatient (RCR) | payer MEDICARE, BC, SELFPAY | END 2025-11-10 23:59 | disposition home or self-care (01) | LOC: SCTC 13:38 | PROVIDERS: PCP Internal Medicine; Referring Provider Internal Medicine; Visit Provider Internal Medicine Hematology & Oncology | DX: D61.818 Other pancytopenia (principal); E11.9 Type 2 diabetes mellitus without complications; Z79.85 Long-term (current) use of injectable non-insulin antidiabetic drugs; R41.3 Other amnesia; Z95.4 Presence of other heart-valve replacement; Z94.4 Liver transplant status | CPT/HCPCS: 99212; G0463 ==

== ENCOUNTER → 2025-11-09 | Outpatient (CLI) | payer MEDICARE, BC, SELFPAY ==
[2025-11-09 08:46] LABS: Basophils # (Auto) 0.0 Thou/mm3 (0.0-0.2); Basophils % (Auto) 0 % (0-2.5); Eosinophils # (Auto) 0.0 Thou/mm3 (0.0-0.5); Eosinophils % (Auto) 1 % (0-10); Hematocrit 36.7 % (36.0-46.0); Hemoglobin 11.9 g/dL (12.0-16.0); Immature Granulocytes Auto 0.00 Thou/mm3 (0.00-0.00); Lymphocytes # (Auto) 1.2 Thou/mm3 (1.0-4.8); Lymphocytes % (Auto) 49 % (10-50); Mean Corpuscular HGB Conc 32.4 g/dl (31.0-37.0); Mean Corpuscular Hemoglobin 29.0 pg (25.0-35.0); Mean Corpuscular Volume 89 fL (80-100); Monocytes # (Auto) 0.2 Thou/mm3 (0.0-0.8); Monocytes % (Auto) 8 % (0-12); Neutrophils # (Auto) 1.1 Thou/mm3 (1.8-7.7); Neutrophils % (Auto) 42 % (37-80); Nucleated Red Blood Cell # 0.00 Thou/mm3 (0.00-0.00); Nucleated Red Blood Cell % 0 /100 WBC (0); Platelet Count 84 Thou/mm3 (140-440); RDW Standard Deviation 45.2 fL (36.4-46.3); Red Blood Count 4.11 Miln/mm3 (4.00-5.20); White Blood Count 2.5 Thou/mm3 (3.6-11.0)
[2025-11-09 08:48] LABS: Alanine Aminotransferase 9 U/L (10-49); Albumin, Serum 4.2 gm/dL (3.4-4.8); Albumin/Globulin Ratio 1.1 (1.2-2.2); Alkaline Phosphatase 91 U/L (46-116); Anion Gap 9 (7-16); Aspartate Amino Transferase 19 U/L (0-34); BUN/Creatinine Ratio 10 Ratio (12-20); Bilirubin,Total 0.6 mg/dL (0.3-1.2); Blood Urea Nitrogen 21 mg/dL (9-23); Calcium 9.6 mg/dL (8.3-10.6); Calcium (Corrected) 9.6 mg/dL (8.5-10.1); Carbon Dioxide 27.6 mMol/L (20.0-31.0); Chloride 107 mMol/L (98-107); Creatinine (Component) 2.2 mg/dL (0.6-1.3); Globulin 3.7 gm/dL (2.3-3.5); Glucose 108 mg/dL (74-106); Osmolality,Calculated 290 (275-295); Potassium 4.4 mMol/L (3.4-5.1); Sodium 144 mMol/L (136-145); Total Protein 7.9 gm/dL (5.7-8.2); eGFR 23 See Note
== END | disposition home or self-care (01) ==
LOC: COPL 07:21
PROVIDERS: PCP Internal Medicine; Referring Provider Internal Medicine Hematology & Oncology; Visit Provider Internal Medicine Hematology & Oncology
DX: D61.818 Other pancytopenia (principal)
CPT/HCPCS: 36415; 80053; 85025